=== PATIENT | female | born 1960 | race Caucasian/White ===

== ENCOUNTER 2017-12-30 12:20 | Inpatient (IN) ==
[2017-12-30 14:47] LABS: Baso % (Auto) 0.5 % (0.0-2.0); Eos # (Auto) 0.1 th/mm3 (0.0-0.4); Eos % (Auto) 1.4 % (0.0-4.0); Hematocrit 37.3 % (35.0-46.0); Lymph # (Auto) 0.9 th/mm3 (1.0-4.8); Lymph % (Auto) 16.8 % (9.0-44.0); Mean Corpuscular HGB Conc 34.8 % (32.0-36.0); Mean Corpuscular Hemoglobin 38.7 pg (27.0-34.0); Mean Corpuscular Volume 111.4 fL (80.0-100.0); Mean Platelet Volume 8.4 fL (7.0-11.0); Mono # (Auto) 0.6 th/mm3 (0.0-0.9); Neut % (Auto) 71.3 % (16.0-70.0); Platelet Count 184 th/mm3 (150-450); Red Blood Count 3.35 mil/mm3 (4.00-5.30); Red Cell Distribution Width 16.2 % (11.6-17.2); White Blood Count 5.6 th/mm3 (4.0-11.0)
[2017-12-30 15:54] LABS: Alanine Aminotransferase 25 U/L (10-53); Albumin 4.2 g/dL (3.4-5.0); Alkaline Phosphatase 51 U/L (45-117); Anion Gap 15 meq/L (5-15); Aspartate Aminotransferase 53 U/L (15-37); Blood Urea Nitrogen 32 mg/dL (7-18); Carbon Dioxide 32.8 meq/L (21.0-32.0); Chloride 87 meq/L (98-107); Glomerular Filtration Rate 30 mL/min (>89); Glucose,Random 154 mg/dL (74-106); Lipase 321 U/L (73-393); Sodium 135 meq/L (136-145); Total Protein 8.3 g/dL (6.4-8.2)
[2017-12-30 15:59] LABS: Potassium 2.5 meq/L (3.5-5.1)
[2017-12-30] MEDS ORDERED: Sod Chloride 0.9% Inj 1,000 ML IV.SIG ONE (16:45)
[2017-12-30] MEDS ORDERED: Potassium Chlor 20 mEq Premix 20 MEQ/100 ML PIGGYBACK IV.SIG ONE (16:45)
[2017-12-30] MEDS ORDERED: Sod Chloride 0.9% Inj 1,000 ML IV.SIG SCH (17:15)
--- NOTE | 2017-12-30 17:26 | ED ---
HPI General Chief complaint: Nausea/Vomiting/Diarrhea Stated complaint: Poss Gallbladder Complaint/UTI Time Seen by Provider: 12/30/17 16:44 Source: patient and family Mode of arrival: ambulatory Limitations: no limitations History of Present Illness HPI Narrative: Patient is a 57-year-old female presenting to emerge department for evaluation of nausea, vomiting, lightheadedness and dizziness. Patient states she has been vomiting daily for several months sometimes 2-3 times a day. Today she reports feeling dizzy and lightheaded which prompted her presentation to the emergency department. Patient reports that she has had intermittent epigastric abdominal pain. Patient also reports dysuria, hesitancy , this started a few days ago. She reports a history of type 2 diabetes, hypertension, depression. Patient states she stopped her medications which included metformin, blood pressure pills, Librium several months ago. She felt like she did not need them. Patient reports that she used to have a history of binge drinking, she initially denied any current alcohol use however she confessed that she has been drinking again. MD complaint: nausea, vomiting and abdominal pain Onset (ago): month(s) Associated Abdominal Pain: Yes Location of pain: epigastric Severity: mild Severity scale (1-10): 3 Quality: cramping and aching Relieving factors: none Exacerbating factors: none Context: alcohol abuse Associated symptoms: nausea/vomiting Related Data Home Medications Medication Instructions Recorded Confirmed potassium chloride [Klor-Con 10] 10 meq PO DAILY 12/30/17 12/30/17 Previous Rx's Medication Instructions Recorded calcium carbonate 400 mg PO BID #10 tab 01/03/18 magnesium oxide 400 mg PO DAILY #5 tab 01/03/18 potassium chloride 20 meq PO BID #20 cap 01/03/18 vancomycin 500 mg PO QID 10 Days #40 each 01/03/18 Allergies Allergy/AdvReac Type Severity Reaction Status Date / Time cephalexin Allergy Unknown VOMITS Verified 12/30/17 16:35 Review of Systems ROS: all other systems reviewed are negative [facility] Medical History Medical History Depression (Acute) Diabetes (Acute) HTN (hypertension) (Acute) Surgical History Surgical History No history of previous surgery (Acute) Social History Social History Substance History: No History of Abuse Second Hand Smoke Exposure: Yes Smoking Status: Current every day smoker Tobacco Type: Cigarettes How Often Do You Have a Drink Containing Alcohol: 2 to 3 times a week Recent Travel in [facility] within the Last 8 Weeks: No Recent Out of Country Travel within the Last 8 Weeks: No Immunization History Tetanus Immunization: >5 Years Hx Influenza Vaccine This Season: No Exam Narrative Exam Narrative: GENERAL: Well-developed, well-nourished, alert female. Presenting in no acute distress. SKIN: Focused skin assessment warm/dry. HEAD: Atraumatic. Normocephalic. EYES: Pupils equal and round. No scleral icterus. No injection or drainage. ENT: No nasal bleeding or discharge. Mucous membranes pink and moist. NECK: Trachea midline. No JVD. CARDIOVASCULAR: Tachycardic. No murmur appreciated. RESPIRATORY: No accessory muscle use. Clear to auscultation. Breath sounds equal bilaterally. GASTROINTESTINAL: Abdomen soft, non-tender, nondistended. Hepatic and splenic margins not palpable. MUSCULOSKELETAL: No obvious deformities. No clubbing. No cyanosis. No edema. NEUROLOGICAL: Awake and alert. No obvious cranial nerve deficits. Motor grossly within normal limits. Normal speech. Mildly tremulous PSYCHIATRIC: Appropriate mood and affect; insight and judgment normal. Course Initial Documented Vital Signs Temperature 98.2 F 12/30/17 13:14 Pulse Rate 115 H 12/30/17 13:14 Respiratory Rate 16 12/30/17 13:14 Blood Pressure 104/62 12/30/17 13:14 Pulse Oximetry 98 12/30/17 13:14 Last Documented Vital Signs Temperature 97.5 F L 01/03/18 08:00 Pulse Rate 68 01/03/18 12:00 Respiratory Rate 19 01/03/18 08:00 Blood Pressure 158/103 H 01/03/18 08:00 Pulse Oximetry 98 01/03/18 08:00 Medical Decision Making [facility] [place] Narrative Medical decision making narrative: Patient presented for evaluation of nausea, vomiting, epigastric abdominal pain. Patient is mildly tachycardic on arrival, labs and imaging ordered and pending. IV fluids, Zofran ordered. Labs reviewed , potassium level was 2.5, she was given oral and IV replacement. BUN and creatinine are elevated at 32/1.73, this is new for patient compared to old records. CT scan the abdomen and pelvis shows fatty infiltration of liver with the liver measuring 18 cm, diverticulosis without diverticulitis, no obstruction or inflammatory changes. Patient will be admitted for acute kidney injury, hypokalemia likely secondary to alcohol abuse. Patient is agreeable to stay. Medical Screen Exam Complete: Yes Emergency Medical Condition: Yes Differential Diagnosis Differential Diagnosis: Metabolic abnormality versus withdrawal versus UTI versus gastritis versus other Lab Data Lab results reviewed: Yes I reviewed the patient's lab results. Result diagrams: 01/03/18 05:51 01/03/18 12:00 Lab Results 12/30/17 12/30/17 12/30/17 Range/Units 13:45 13:59 13:59 WBC 5.6 (4.0-11.0) th/mm3 RBC 3.35 L (4.00-5.30) mil/mm3 Hgb 13.0 (11.6-15.3) gm/dL Hct 37.3 (35.0-46.0) % MCV 111.4 H (80.0-100.0) fL MCH 38.7 H (27.0-34.0) pg MCHC 34.8 (32.0-36.0) % RDW 16.2 (11.6-17.2) % Plt Count 184 (150-450) th/mm3 MPV 8.4 (7.0-11.0) fL Neut % (Auto) 71.3 H (16.0-70.0) % Lymph % (Auto) 16.8 (9.0-44.0) % [place] % (Auto) 10.0 H (0.0-8.0) % Eos % (Auto) 1.4 (0.0-4.0) % Baso % (Auto) 0.5 (0.0-2.0) % Neut # (Auto) 4.0 (1.8-7.7) th/mm3 Lymph # (Auto) 0.9 L (1.0-4.8) th/mm3 [place] # (Auto) 0.6 (0.0-0.9) th/mm3 Eos # (Auto) 0.1 (0.0-0.4) th/mm3 Baso # (Auto) 0.0 (0.0-0.2) th/mm3 WBC Differential . Differential Comment Auto diff final PT (9.8-11.6) sec INR Ratio APTT (24.3-30.1) sec Sodium 135 L (136-145) meq/L Potassium 2.5 L* (3.5-5.1) meq/L Chloride 87 L (98-107) meq/L Carbon Dioxide 32.8 H (21.0-32.0) meq/L Anion Gap 15 (5-15) meq/L BUN 32 H (7-18) mg/dL Creatinine 1.73 H (0.50-1.00) mg/dL Estimated GFR 30 L (>89) mL/min POC Glucose (68-110) mg/dl Random Glucose 154 H (74-106) mg/dL Hemoglobin A1c (4.3-6.0) % Calcium 8.0 L (8.5-10.1) mg/dL Prot Corrected Calcium (8.5-10.1) mg/dL Total Bilirubin 1.9 H (0.2-1.0) mg/dL AST 53 H (15-37) U/L ALT 25 (10-53) U/L Alkaline Phosphatase 51 (45-117) U/L Total Creatine Kinase (26-192) U/L CK-MB (CK-2) (0.5-3.6) ng/mL CK-MB (CK-2) % (0.0-4.0) % Troponin I (0.02-0.05) ng/mL Total Protein 8.3 H (6.4-8.2) g/dL Albumin 4.2 (3.4-5.0) g/dL Lipase 321 (73-393) U/L Urine Color [place] (Yellw/Straw) Urine Clarity Cloudy H (Clear) Urine pH 5.0 (5.0-8.5) Ur Specific [place] 1.030 (1.002-1.035) Urine Protein 100 H (Neg-Trace) mg/dL Urine Glucose (UA) 50 (Negative) mg/dL Urine Ketones Trace H (Negative) mg/dL Urine Occult Blood Negative (Negative) Urine Nitrate Positive H (Negative) Urine Bilirubin Moderate H (Negative) Urine Ictotest (Negative) Urine Urobilinogen 4 or greater (Less than 2) mg/dL Ur Leukocyte Esterase Trace H (Negative) Urine RBC 1 (0-3) /hpf Urine WBC 6 H (0-5) /hpf Ur Squamous Epith Cells 22 (0-5) /hpf Urine Bacteria Moderate H (None) /hpf Hyaline Casts 33 (0-3) /lpf Urine Mucus Many H (Occasional) /lpf Micro UA Comment Culture indicated Ur Microscopic Review Not Reportable Urine Culture Comments Culture indicated Stl C.difficile Tox PCR (Negative) St C. diff Tox Epid 027 (Negative) 12/30/17 12/30/17 12/30/17 Range/Units 13:59 16:40 16:40 WBC (4.0-11.0) th/mm3 RBC (4.00-5.30) mil/mm3 Hgb (11.6-15.3) gm/dL Hct (35.0-46.0) % MCV (80.0-100.0) fL MCH (27.0-34.0) pg MCHC (32.0-36.0) % RDW (11.6-17.2) % Plt Count (150-450) th/mm3 MPV (7.0-11.0) fL Neut % (Auto) (16.0-70.0) % Lymph % (Auto) (9.0-44.0) % [place] % (Auto) (0.0-8.0) % Eos % (Auto) (0.0-4.0) % Baso % (Auto) (0.0-2.0) % Neut # (Auto) (1.8-7.7) th/mm3 Lymph # (Auto) (1.0-4.8) th/mm3 [place] # (Auto) (0.0-0.9) th/mm3 Eos # (Auto) (0.0-0.4) th/mm3 Baso # (Auto) (0.0-0.2) th/mm3 WBC Differential Differential Comment PT 11.6 (9.8-11.6) sec INR 1.1 Ratio APTT 23.4 L (24.3-30.1) sec Sodium (136-145) meq/L Potassium (3.5-5.1) meq/L Chloride (98-107) meq/L Carbon Dioxide (21.0-32.0) meq/L Anion Gap (5-15) meq/L BUN (7-18) mg/dL Creatinine (0.50-1.00) mg/dL Estimated GFR (>89) mL/min POC Glucose (68-110) mg/dl Random Glucose (74-106) mg/dL Hemoglobin A1c 7.5 H (4.3-6.0) % Calcium (8.5-10.1) mg/dL Prot Corrected Calcium (8.5-10.1) mg/dL Total Bilirubin (0.2-1.0) mg/dL AST (15-37) U/L ALT (10-53) U/L Alkaline Phosphatase (45-117) U/L Total Creatine Kinase 417 H (26-192) U/L CK-MB (CK-2) Less than 1.0 (0.5-3.6) ng/mL CK-MB (CK-2) % 0.2 (0.0-4.0) % Troponin I Less than 0.02 L (0.02-0.05) ng/mL Total Protein (6.4-8.2) g/dL Albumin (3.4-5.0) g/dL Lipase (73-393) U/L Urine Color (Yellw/Straw) Urine Clarity (Clear) Urine pH (5.0-8.5) Ur Specific [place] (1.002-1.035) Urine Protein (Neg-Trace) mg/dL Urine Glucose (UA) (Negative) mg/dL Urine Ketones (Negative) mg/dL Urine Occult Blood (Negative) Urine Nitrate (Negative) Urine Bilirubin (Negative) Urine Ictotest (Negative) Urine Urobilinogen (Less than 2) mg/dL Ur Leukocyte Esterase (Negative) Urine RBC (0-3) /hpf Urine WBC (0-5) /hpf Ur Squamous Epith Cells (0-5) /hpf Urine Bacteria (None) /hpf Hyaline Casts (0-3) /lpf Urine Mucus (Occasional) /lpf Micro UA Comment Ur Microscopic Review Urine Culture Comments Stl C.difficile Tox PCR (Negative) St C. diff Tox Epid 027 (Negative) 12/30/17 12/31/17 12/31/17 Range/Units 23:40 03:15 06:58 WBC 3.0 L (4.0-11.0) th/mm3 RBC 2.56 L (4.00-5.30) mil/mm3 Hgb 10.0 L D (11.6-15.3) gm/dL Hct 28.9 L (35.0-46.0) % MCV 113.1 H (80.0-100.0) fL MCH 39.2 H (27.0-34.0) pg MCHC 34.6 (32.0-36.0) % RDW 16.3 (11.6-17.2) % Plt Count 115 L D (150-450) th/mm3 MPV 8.1 (7.0-11.0) fL Neut % (Auto) 61.0 (16.0-70.0) % Lymph % (Auto) 24.4 (9.0-44.0) % [place] % (Auto) 11.8 H (0.0-8.0) % Eos % (Auto) 2.3 (0.0-4.0) % Baso % (Auto) 0.5 (0.0-2.0) % Neut # (Auto) 1.8 (1.8-7.7) th/mm3 Lymph # (Auto) 0.7 L (1.0-4.8) th/mm3 [place] # (Auto) 0.4 (0.0-0.9) th/mm3 Eos # (Auto) 0.1 (0.0-0.4) th/mm3 Baso # (Auto) 0.0 (0.0-0.2) th/mm3 WBC Differential . Differential Comment Auto diff final PT (9.8-11.6) sec INR Ratio APTT (24.3-30.1) sec Sodium (136-145) meq/L Potassium (3.5-5.1) meq/L Chloride (98-107) meq/L Carbon Dioxide (21.0-32.0) meq/L Anion Gap (5-15) meq/L BUN (7-18) mg/dL Creatinine (0.50-1.00) mg/dL Estimated GFR (>89) mL/min POC Glucose 171 H (68-110) mg/dl Random Glucose (74-106) mg/dL Hemoglobin A1c (4.3-6.0) % Calcium (8.5-10.1) mg/dL Prot Corrected Calcium (8.5-10.1) mg/dL Total Bilirubin (0.2-1.0) mg/dL AST (15-37) U/L ALT (10-53) U/L Alkaline Phosphatase (45-117) U/L Total Creatine Kinase (26-192) U/L CK-MB (CK-2) (0.5-3.6) ng/mL CK-MB (CK-2) % (0.0-4.0) % Troponin I (0.02-0.05) ng/mL Total Protein (6.4-8.2) g/dL Albumin (3.4-5.0) g/dL Lipase (73-393) U/L Urine Color (Yellw/Straw) Urine Clarity (Clear) Urine pH (5.0-8.5) Ur Specific [place] (1.002-1.035) Urine Protein (Neg-Trace) mg/dL Urine Glucose (UA) (Negative) mg/dL Urine Ketones (Negative) mg/dL Urine Occult Blood (Negative) Urine Nitrate (Negative) Urine Bilirubin (Negative) Urine Ictotest (Negative) Urine Urobilinogen (Less than 2) mg/dL Ur Leukocyte Esterase (Negative) Urine RBC (0-3) /hpf Urine WBC (0-5) /hpf Ur Squamous Epith Cells (0-5) /hpf Urine Bacteria (None) /hpf Hyaline Casts (0-3) /lpf Urine Mucus (Occasional) /lpf Micro UA Comment Ur Microscopic Review Urine Culture Comments Stl C.difficile Tox PCR Positive H (Negative) St C. diff Tox Epid 027 Negative (Negative) 12/31/17 12/31/17 12/31/17 Range/Units 06:58 12:33 16:53 WBC (4.0-11.0) th/mm3 RBC (4.00-5.30) mil/mm3 Hgb (11.6-15.3) gm/dL Hct (35.0-46.0) % MCV (80.0-100.0) fL MCH (27.0-34.0) pg MCHC (32.0-36.0) % RDW (11.6-17.2) % Plt Count (150-450) th/mm3 MPV (7.0-11.0) fL Neut % (Auto) (16.0-70.0) % Lymph % (Auto) (9.0-44.0) % [place] % (Auto) (0.0-8.0) % Eos % (Auto) (0.0-4.0) % Baso % (Auto) (0.0-2.0) % Neut # (Auto) (1.8-7.7) th/mm3 Lymph # (Auto) (1.0-4.8) th/mm3 [place] # (Auto) (0.0-0.9) th/mm3 Eos # (Auto) (0.0-0.4) th/mm3 Baso # (Auto) (0.0-0.2) th/mm3 WBC Differential Differential Comment PT (9.8-11.6) sec INR Ratio APTT (24.3-30.1) sec Sodium 137 (136-145) meq/L Potassium 2.2 L* (3.5-5.1) meq/L Chloride 97 L D (98-107) meq/L Carbon Dioxide 26.9 (21.0-32.0) meq/L Anion Gap 13 (5-15) meq/L BUN 30 H (7-18) mg/dL Creatinine 1.27 H (0.50-1.00) mg/dL Estimated GFR 44 L (>89) mL/min POC Glucose 147 H 165 H (68-110) mg/dl Random Glucose 131 H (74-106) mg/dL Hemoglobin A1c (4.3-6.0) % Calcium 6.6 L* D (8.5-10.1) mg/dL Prot Corrected Calcium 7.1 L* (8.5-10.1) mg/dL Total Bilirubin 1.0 (0.2-1.0) mg/dL AST 43 H (15-37) U/L ALT 16 (10-53) U/L Alkaline Phosphatase 40 L (45-117) U/L Total Creatine Kinase (26-192) U/L CK-MB (CK-2) (0.5-3.6) ng/mL CK-MB (CK-2) % (0.0-4.0) % Troponin I (0.02-0.05) ng/mL Total Protein 6.0 L D (6.4-8.2) g/dL Albumin 3.2 L D (3.4-5.0) g/dL Lipase (73-393) U/L Urine Color (Yellw/Straw) Urine Clarity (Clear) Urine pH (5.0-8.5) Ur Specific [place] (1.002-1.035) Urine Protein (Neg-Trace) mg/dL Urine Glucose (UA) (Negative) mg/dL Urine Ketones (Negative) mg/dL Urine Occult Blood (Negative) Urine Nitrate (Negative) Urine Bilirubin (Negative) Urine Ictotest (Negative) Urine Urobilinogen (Less than 2) mg/dL Ur Leukocyte Esterase (Negative) Urine RBC (0-3) /hpf Urine WBC (0-5) /hpf Ur Squamous Epith Cells (0-5) /hpf Urine Bacteria (None) /hpf Hyaline Casts (0-3) /lpf Urine Mucus (Occasional) /lpf Micro UA Comment Ur Microscopic Review Urine Culture Comments Stl C.difficile Tox PCR (Negative) St C. diff Tox Epid 027 (Negative) 12/31/17 01/01/18 01/01/18 Range/Units 20:10 04:31 07:44 WBC 3.2 L (4.0-11.0) th/mm3 RBC 2.73 L (4.00-5.30) mil/mm3 Hgb 10.6 L (11.6-15.3) gm/dL Hct 31.0 L (35.0-46.0) % MCV 113.3 H (80.0-100.0) fL MCH 38.7 H (27.0-34.0) pg MCHC 34.1 (32.0-36.0) % RDW 16.8 (11.6-17.2) % Plt Count 148 L (150-450) th/mm3 MPV 8.2 (7.0-11.0) fL Neut % (Auto) 59.1 (16.0-70.0) % Lymph % (Auto) 25.7 (9.0-44.0) % [place] % (Auto) 12.0 H (0.0-8.0) % Eos % (Auto) 2.4 (0.0-4.0) % Baso % (Auto) 0.8 (0.0-2.0) % Neut # (Auto) 1.9 (1.8-7.7) th/mm3 Lymph # (Auto) 0.8 L (1.0-4.8) th/mm3 [place] # (Auto) 0.4 (0.0-0.9) th/mm3 Eos # (Auto) 0.1 (0.0-0.4) th/mm3 Baso # (Auto) 0.0 (0.0-0.2) th/mm3 WBC Differential . Differential Comment Auto diff final PT (9.8-11.6) sec INR Ratio APTT (24.3-30.1) sec Sodium (136-145) meq/L Potassium (3.5-5.1) meq/L Chloride (98-107) meq/L Carbon Dioxide (21.0-32.0) meq/L Anion Gap (5-15) meq/L BUN (7-18) mg/dL Creatinine (0.50-1.00) mg/dL Estimated GFR (>89) mL/min POC Glucose 137 H 116 H (68-110) mg/dl Random Glucose (74-106) mg/dL Hemoglobin A1c (4.3-6.0) % Calcium (8.5-10.1) mg/dL Prot Corrected Calcium (8.5-10.1) mg/dL Total Bilirubin (0.2-1.0) mg/dL AST (15-37) U/L ALT (10-53) U/L Alkaline Phosphatase (45-117) U/L Total Creatine Kinase (26-192) U/L CK-MB (CK-2) (0.5-3.6) ng/mL CK-MB (CK-2) % (0.0-4.0) % Troponin I (0.02-0.05) ng/mL Total Protein (6.4-8.2) g/dL Albumin (3.4-5.0) g/dL Lipase (73-393) U/L Urine Color (Yellw/Straw) Urine Clarity (Clear) Urine pH (5.0-8.5) Ur Specific [place] (1.002-1.035) Urine Protein (Neg-Trace) mg/dL Urine Glucose (UA) (Negative) mg/dL Urine Ketones (Negative) mg/dL Urine Occult Blood (Negative) Urine Nitrate (Negative) Urine Bilirubin (Negative) Urine Ictotest (Negative) Urine Urobilinogen (Less than 2) mg/dL Ur Leukocyte Esterase (Negative) Urine RBC (0-3) /hpf Urine WBC (0-5) /hpf Ur Squamous Epith Cells (0-5) /hpf Urine Bacteria (None) /hpf Hyaline Casts (0-3) /lpf Urine Mucus (Occasional) /lpf Micro UA Comment Ur Microscopic Review Urine Culture Comments Stl C.difficile Tox PCR (Negative) St C. diff Tox Epid 027 (Negative) 01/01/18 01/01/18 01/02/18 Range/Units 07:44 13:17 08:44 WBC 3.4 L (4.0-11.0) th/mm3 RBC 2.45 L (4.00-5.30) mil/mm3 Hgb 9.6 L (11.6-15.3) gm/dL Hct 27.6 L (35.0-46.0) % MCV 112.8 H (80.0-100.0) fL MCH 39.0 H (27.0-34.0) pg MCHC 34.6 (32.0-36.0) % RDW 16.3 (11.6-17.2) % Plt Count 176 (150-450) th/mm3 MPV 8.2 (7.0-11.0) fL Neut % (Auto) 67.4 (16.0-70.0) % Lymph % (Auto) 19.6 (9.0-44.0) % [place] % (Auto) 9.7 H (0.0-8.0) % Eos % (Auto) 2.5 (0.0-4.0) % Baso % (Auto) 0.8 (0.0-2.0) % Neut # (Auto) 2.3 (1.8-7.7) th/mm3 Lymph # (Auto) 0.7 L (1.0-4.8) th/mm3 [place] # (Auto) 0.3 (0.0-0.9) th/mm3 Eos # (Auto) 0.1 (0.0-0.4) th/mm3 Baso # (Auto) 0.0 (0.0-0.2) th/mm3 WBC Differential . Differential Comment Auto diff final PT (9.8-11.6) sec INR Ratio APTT (24.3-30.1) sec Sodium 139 (136-145) meq/L Potassium 2.6 L* 3.0 L (3.5-5.1) meq/L Chloride 102 (98-107) meq/L Carbon Dioxide 24.9 (21.0-32.0) meq/L Anion Gap 12 (5-15) meq/L BUN 17 (7-18) mg/dL Creatinine 1.00 (0.50-1.00) mg/dL Estimated GFR 57 L (>89) mL/min POC Glucose (68-110) mg/dl Random Glucose 106 (74-106) mg/dL Hemoglobin A1c (4.3-6.0) % Calcium 6.7 L* (8.5-10.1) mg/dL Prot Corrected Calcium 7.1 L* (8.5-10.1) mg/dL Total Bilirubin 0.5 (0.2-1.0) mg/dL AST 47 H (15-37) U/L ALT 24 (10-53) U/L Alkaline Phosphatase 48 (45-117) U/L Total Creatine Kinase (26-192) U/L CK-MB (CK-2) (0.5-3.6) ng/mL CK-MB (CK-2) % (0.0-4.0) % Troponin I (0.02-0.05) ng/mL Total Protein 6.4 (6.4-8.2) g/dL Albumin 3.3 L (3.4-5.0) g/dL Lipase (73-393) U/L Urine Color (Yellw/Straw) Urine Clarity (Clear) Urine pH (5.0-8.5) Ur Specific [place] (1.002-1.035) Urine Protein (Neg-Trace) mg/dL Urine Glucose (UA) (Negative) mg/dL Urine Ketones (Negative) mg/dL Urine Occult Blood (Negative) Urine Nitrate (Negative) Urine Bilirubin (Negative) Urine Ictotest (Negative) Urine Urobilinogen (Less than 2) mg/dL Ur Leukocyte Esterase (Negative) Urine RBC (0-3) /hpf Urine WBC (0-5) /hpf Ur Squamous Epith Cells (0-5) /hpf Urine Bacteria (None) /hpf Hyaline Casts (0-3) /lpf Urine Mucus (Occasional) /lpf Micro UA Comment Ur Microscopic Review Urine Culture Comments Stl C.difficile Tox PCR (Negative) St C. diff Tox Epid 027 (Negative) 01/02/18 01/02/18 01/02/18 Range/Units 08:44 09:18 12:15 WBC (4.0-11.0) th/mm3 RBC (4.00-5.30) mil/mm3 Hgb (11.6-15.3) gm/dL Hct (35.0-46.0) % MCV (80.0-100.0) fL MCH (27.0-34.0) pg MCHC (32.0-36.0) % RDW (11.6-17.2) % Plt Count (150-450) th/mm3 MPV (7.0-11.0) fL Neut % (Auto) (16.0-70.0) % Lymph % (Auto) (9.0-44.0) % [place] % (Auto) (0.0-8.0) % Eos % (Auto) (0.0-4.0) % Baso % (Auto) (0.0-2.0) % Neut # (Auto) (1.8-7.7) th/mm3 Lymph # (Auto) (1.0-4.8) th/mm3 [place] # (Auto) (0.0-0.9) th/mm3 Eos # (Auto) (0.0-0.4) th/mm3 Baso # (Auto) (0.0-0.2) th/mm3 WBC Differential Differential Comment PT (9.8-11.6) sec INR Ratio APTT (24.3-30.1) sec Sodium 139 (136-145) meq/L Potassium 2.8 L* (3.5-5.1) meq/L Chloride 102 (98-107) meq/L Carbon Dioxide 23.5 (21.0-32.0) meq/L Anion Gap 14 (5-15) meq/L BUN 10 (7-18) mg/dL Creatinine 0.84 (0.50-1.00) mg/dL Estimated GFR 70 L (>89) mL/min POC Glucose 120 H 114 H (68-110) mg/dl Random Glucose 115 H (74-106) mg/dL Hemoglobin A1c (4.3-6.0) % Calcium 6.4 L* (8.5-10.1) mg/dL Prot Corrected Calcium 6.9 L* (8.5-10.1) mg/dL Total Bilirubin 0.5 (0.2-1.0) mg/dL AST 52 H (15-37) U/L ALT 28 (10-53) U/L Alkaline Phosphatase 48 (45-117) U/L Total Creatine Kinase (26-192) U/L CK-MB (CK-2) (0.5-3.6) ng/mL CK-MB (CK-2) % (0.0-4.0) % Troponin I (0.02-0.05) ng/mL Total Protein 6.0 L (6.4-8.2) g/dL Albumin 3.2 L (3.4-5.0) g/dL Lipase (73-393) U/L Urine Color (Yellw/Straw) Urine Clarity (Clear) Urine pH (5.0-8.5) Ur Specific [place] (1.002-1.035) Urine Protein (Neg-Trace) mg/dL Urine Glucose (UA) (Negative) mg/dL Urine Ketones (Negative) mg/dL Urine Occult Blood (Negative) Urine Nitrate (Negative) Urine Bilirubin (Negative) Urine Ictotest (Negative) Urine Urobilinogen (Less than 2) mg/dL Ur Leukocyte Esterase (Negative) Urine RBC (0-3) /hpf Urine WBC (0-5) /hpf Ur Squamous Epith Cells (0-5) /hpf Urine Bacteria (None) /hpf Hyaline Casts (0-3) /lpf Urine Mucus (Occasional) /lpf Micro UA Comment Ur Microscopic Review Urine Culture Comments Stl C.difficile Tox PCR (Negative) St C. diff Tox Epid 027 (Negative) 01/02/18 01/02/18 01/02/18 Range/Units 16:59 17:06 20:12 WBC (4.0-11.0) th/mm3 RBC (4.00-5.30) mil/mm3 Hgb (11.6-15.3) gm/dL Hct (35.0-46.0) % MCV (80.0-100.0) fL MCH (27.0-34.0) pg MCHC (32.0-36.0) % RDW (11.6-17.2) % Plt Count (150-450) th/mm3 MPV (7.0-11.0) fL Neut % (Auto) (16.0-70.0) % Lymph % (Auto) (9.0-44.0) % [place] % (Auto) (0.0-8.0) % Eos % (Auto) (0.0-4.0) % Baso % (Auto) (0.0-2.0) % Neut # (Auto) (1.8-7.7) th/mm3 Lymph # (Auto) (1.0-4.8) th/mm3 [place] # (Auto) (0.0-0.9) th/mm3 Eos # (Auto) (0.0-0.4) th/mm3 Baso # (Auto) (0.0-0.2) th/mm3 WBC Differential Differential Comment PT (9.8-11.6) sec INR Ratio APTT (24.3-30.1) sec Sodium (136-145) meq/L Potassium 3.1 L (3.5-5.1) meq/L Chloride (98-107) meq/L Carbon Dioxide (21.0-32.0) meq/L Anion Gap (5-15) meq/L BUN (7-18) mg/dL Creatinine (0.50-1.00) mg/dL Estimated GFR (>89) mL/min POC Glucose 135 H 171 H (68-110) mg/dl Random Glucose (74-106) mg/dL Hemoglobin A1c (4.3-6.0) % Calcium (8.5-10.1) mg/dL Prot Corrected Calcium (8.5-10.1) mg/dL Total Bilirubin (0.2-1.0) mg/dL AST (15-37) U/L ALT (10-53) U/L Alkaline Phosphatase (45-117) U/L Total Creatine Kinase (26-192) U/L CK-MB (CK-2) (0.5-3.6) ng/mL CK-MB (CK-2) % (0.0-4.0) % Troponin I (0.02-0.05) ng/mL Total Protein (6.4-8.2) g/dL Albumin (3.4-5.0) g/dL Lipase (73-393) U/L Urine Color (Yellw/Straw) Urine Clarity (Clear) Urine pH (5.0-8.5) Ur Specific [place] (1.002-1.035) Urine Protein (Neg-Trace) mg/dL Urine Glucose (UA) (Negative) mg/dL Urine Ketones (Negative) mg/dL Urine Occult Blood (Negative) Urine Nitrate (Negative) Urine Bilirubin (Negative) Urine Ictotest (Negative) Urine Urobilinogen (Less than 2) mg/dL Ur Leukocyte Esterase (Negative) Urine RBC (0-3) /hpf Urine WBC (0-5) /hpf Ur Squamous Epith Cells (0-5) /hpf Urine Bacteria (None) /hpf Hyaline Casts (0-3) /lpf Urine Mucus (Occasional) /lpf Micro UA Comment Ur Microscopic Review Urine Culture Comments Stl C.difficile Tox PCR (Negative) St C. diff Tox Epid 027 (Negative) 01/03/18 01/03/18 01/03/18 Range/Units 04:20 05:51 05:51 WBC 3.4 L (4.0-11.0) th/mm3 RBC 2.65 L (4.00-5.30) mil/mm3 Hgb 10.2 L (11.6-15.3) gm/dL Hct 29.5 L (35.0-46.0) % MCV 111.6 H (80.0-100.0) fL MCH 38.4 H (27.0-34.0) pg MCHC 34.4 (32.0-36.0) % RDW 16.7 (11.6-17.2) % Plt Count 212 (150-450) th/mm3 MPV 8.4 (7.0-11.0) fL Neut % (Auto) 62.9 (16.0-70.0) % Lymph % (Auto) 21.9 (9.0-44.0) % [place] % (Auto) 12.0 H (0.0-8.0) % Eos % (Auto) 2.3 (0.0-4.0) % Baso % (Auto) 0.9 (0.0-2.0) % Neut # (Auto) 2.1 (1.8-7.7) th/mm3 Lymph # (Auto) 0.7 L (1.0-4.8) th/mm3 [place] # (Auto) 0.4 (0.0-0.9) th/mm3 Eos # (Auto) 0.1 (0.0-0.4) th/mm3 Baso # (Auto) 0.0 (0.0-0.2) th/mm3 WBC Differential . Differential Comment Auto diff final PT (9.8-11.6) sec INR Ratio APTT (24.3-30.1) sec Sodium 141 (136-145) meq/L Potassium 3.2 L (3.5-5.1) meq/L Chloride 105 (98-107) meq/L Carbon Dioxide 24.6 (21.0-32.0) meq/L Anion Gap 11 (5-15) meq/L BUN 10 (7-18) mg/dL Creatinine 0.97 (0.50-1.00) mg/dL Estimated GFR 59 L (>89) mL/min POC Glucose 155 H (68-110) mg/dl Random Glucose 120 H (74-106) mg/dL Hemoglobin A1c (4.3-6.0) % Calcium 6.7 L* (8.5-10.1) mg/dL Prot Corrected Calcium 7.2 L* (8.5-10.1) mg/dL Total Bilirubin 0.5 (0.2-1.0) mg/dL AST 30 (15-37) U/L ALT 23 (10-53) U/L Alkaline Phosphatase 46 (45-117) U/L Total Creatine Kinase (26-192) U/L CK-MB (CK-2) (0.5-3.6) ng/mL CK-MB (CK-2) % (0.0-4.0) % Troponin I (0.02-0.05) ng/mL Total Protein 6.1 L (6.4-8.2) g/dL Albumin 3.0 L (3.4-5.0) g/dL Lipase (73-393) U/L Urine Color (Yellw/Straw) Urine Clarity (Clear) Urine pH (5.0-8.5) Ur Specific [place] (1.002-1.035) Urine Protein (Neg-Trace) mg/dL Urine Glucose (UA) (Negative) mg/dL Urine Ketones (Negative) mg/dL Urine Occult Blood (Negative) Urine Nitrate (Negative) Urine Bilirubin (Negative) Urine Ictotest (Negative) Urine Urobilinogen (Less than 2) mg/dL Ur Leukocyte Esterase (Negative) Urine RBC (0-3) /hpf Urine WBC (0-5) /hpf Ur Squamous Epith Cells (0-5) /hpf Urine Bacteria (None) /hpf Hyaline Casts (0-3) /lpf Urine Mucus (Occasional) /lpf Micro UA Comment Ur Microscopic Review Urine Culture Comments Stl C.difficile Tox PCR (Negative) St C. diff Tox Epid 027 (Negative) 01/03/18 01/03/18 Range/Units 07:44 12:00 WBC (4.0-11.0) th/mm3 RBC (4.00-5.30) mil/mm3 Hgb (11.6-15.3) gm/dL Hct (35.0-46.0) % MCV (80.0-100.0) fL MCH (27.0-34.0) pg MCHC (32.0-36.0) % RDW (11.6-17.2) % Plt Count (150-450) th/mm3 MPV (7.0-11.0) fL Neut % (Auto) (16.0-70.0) % Lymph % (Auto) (9.0-44.0) % [place] % (Auto) (0.0-8.0) % Eos % (Auto) (0.0-4.0) % Baso % (Auto) (0.0-2.0) % Neut # (Auto) (1.8-7.7) th/mm3 Lymph # (Auto) (1.0-4.8) th/mm3 [place] # (Auto) (0.0-0.9) th/mm3 Eos # (Auto) (0.0-0.4) th/mm3 Baso # (Auto) (0.0-0.2) th/mm3 WBC Differential Differential Comment PT (9.8-11.6) sec INR Ratio APTT (24.3-30.1) sec Sodium (136-145) meq/L Potassium 3.1 L (3.5-5.1) meq/L Chloride (98-107) meq/L Carbon Dioxide (21.0-32.0) meq/L Anion Gap (5-15) meq/L BUN (7-18) mg/dL Creatinine (0.50-1.00) mg/dL Estimated GFR (>89) mL/min POC Glucose 131 H (68-110) mg/dl Random Glucose (74-106) mg/dL Hemoglobin A1c (4.3-6.0) % Calcium (8.5-10.1) mg/dL Prot Corrected Calcium (8.5-10.1) mg/dL Total Bilirubin (0.2-1.0) mg/dL AST (15-37) U/L ALT (10-53) U/L Alkaline Phosphatase (45-117) U/L Total Creatine Kinase (26-192) U/L CK-MB (CK-2) (0.5-3.6) ng/mL CK-MB (CK-2) % (0.0-4.0) % Troponin I (0.02-0.05) ng/mL Total Protein (6.4-8.2) g/dL Albumin (3.4-5.0) g/dL Lipase (73-393) U/L Urine Color (Yellw/Straw) Urine Clarity (Clear) Urine pH (5.0-8.5) Ur Specific [place] (1.002-1.035) Urine Protein (Neg-Trace) mg/dL Urine Glucose (UA) (Negative) mg/dL Urine Ketones (Negative) mg/dL Urine Occult Blood (Negative) Urine Nitrate (Negative) Urine Bilirubin (Negative) Urine Ictotest (Negative) Urine Urobilinogen (Less than 2) mg/dL Ur Leukocyte Esterase (Negative) Urine RBC (0-3) /hpf Urine WBC (0-5) /hpf Ur Squamous Epith Cells (0-5) /hpf Urine Bacteria (None) /hpf Hyaline Casts (0-3) /lpf Urine Mucus (Occasional) /lpf Micro UA Comment Ur Microscopic Review Urine Culture Comments Stl C.difficile Tox PCR (Negative) St C. diff Tox Epid 027 (Negative) Imaging Data Radiologist's impression: Abdomen/Bladder Ultrasound 12/30/17 00:00 CONCLUSION: 1. Increased echotexture of both kidneys typical of chronic parenchymal disease , nonspecific but as can be related to hypertension or diabetes. 2. No obstructive uropathy or other acute abnormality demonstrated. Abdomen/Pelvis CT 12/30/17 16:45 CONCLUSION: 1. No obstruction or acute inflammatory changes. 2. Mild diverticulosis. No diverticulitis. 3. Severe fatty infiltration of the liver. Similar findings were seen previously. Discharge Plan Discharge Disposition Patient Disposition: 30 Still Patient Discharge Condition Condition: Stable Discharge Order Discharge Orders: Discharge Order (Routine); Ordered 01/03/18 Ordered By: Gokul Valentino Discharge Details Anticipated Discharge Date: 01/03/18 Diagnosis: Acute hypokalemia, JAYME (acute kidney injury), ETOH abuse Physicians Team ED Provider: Gokul Mcelroy ED Midlevel Provider: Katey Zamorano Primary Care Provider: Primary Care Katie Duarte Attending Provider: Gokul Valentino Status ED Status: Left Department Discharge Information Discharge Date/Time: 12/31/17 01:14
[2017-12-30 17:47] LABS: Activated Partial Thrombo Time 23.4 sec (24.3-30.1); INR 1.1 Ratio; Prothrombin Time 11.6 sec (9.8-11.6)
[2017-12-30 17:49] LABS: Creatine Kinase 417 U/L (26-192)
[2017-12-30 18:02] LABS: CKMB Percent 0.2 % (0.0-4.0)
--- NOTE | 2017-12-30 18:17 | CT ---
EXAM DATE: 12/30/2017 6:04 PM EDT AGE/SEX: 57 years / Female INDICATIONS: Nausea vomiting diarrhea upper and lower abdomen pain CLINICAL DATA: This is the patient's initial encounter. Patient reports that signs and symptoms have been present for 1 day and indicates a pain score of 5/10. MEDICAL/SURGICAL HISTORY: Diabetes. Hypertension. None. RADIATION DOSE: 5.54 CTDI (mGy) COMPARISON: [facility] [place] ABDOMEN & PELVIS W CONTRAST, 05/18/2013. . TECHNIQUE: Multiple contiguous axial images were obtained through the abdomen. Images were obtained using multiple row detector helical technique. Using automated exposure control and adjustment of the mA and/or kV according to patient size, radiation dose was kept as low as reasonably achievable to o btain optimal diagnostic quality images. DICOM format image data is available electronically for rev iew and comparison. FINDINGS: There is severe fatty infiltration of the liver. The liver measures 18 cm craniocaudal. No focal hepa tic lesion demonstrated. CT appearance of the gallbladder within normal limits. Noncontrast appearance of the spleen, pancreas, adrenal glands and kidneys within normal limits. No obstruction or acute inflammatory changes are seen of the gastrointestinal tract. There are a few scattered diverticula of the sigmoid colon. The appendix is within normal limits. There is no free fl uid. Visualized lung bases are clear. No acute bony abnormality demonstrated. CONCLUSION: 1. No obstruction or acute inflammatory changes. 2. Mild diverticulosis. No diverticulitis. 3. Severe fatty infiltration of the liver. Similar findings were seen previously. Electronically signed by: Markus Kam MD 12/30/2017 6:15 PM EDT
[2017-12-30] MEDS ORDERED: Bisacodyl 10 MG Supp RECTAL PRN (18:41)
[2017-12-30] MEDS ORDERED: Acetaminophen 325 MG Tablet PO PRN (18:41)
--- NOTE | 2017-12-30 19:24 | US ---
EXAM DATE: 12/30/2017 7:20 PM EDT AGE/SEX: 57 years / Female INDICATIONS: Increased BUN/Creatnine. CLINICAL DATA: This is the patient's initial encounter. Patient reports that signs and symptoms have been present for 1 week and indicates a pain score of 3/10. MEDICAL/SURGICAL HISTORY: Hypertension. Diabetes. Depression. None. COMPARISON: No prior exams available for comparison. MEASUREMENTS: Right Kidney:__9.3 x 4.7 x 4.4 cm Left Kidney:__10.1 x 3.4 x 5.0 cm FINDINGS: Right Kidney: Cortical thickness within normal limits. Increased echotexture. No mass or hydronephros is. Left Kidney: Cortical thickness within normal limits. Increased echotexture. No mass or hydronephrosi s. Bladder: Decompressed. Not well evaluated. Other: None. CONCLUSION: 1. Increased echotexture of both kidneys typical of chronic parenchymal disease, nonspecific but as can be related to hypertension or diabetes. 2. No obstructive uropathy or other acute abnormality demonstrated. Electronically signed by: Markus Kam MD 12/30/2017 7:22 PM EDT
[2017-12-30] MEDS: Sod Chloride 0.9% Inj 1,000 ML IV.CONT SCH (19:56)
[2017-12-30 19:58] LABS: Bacteria,Urine Moderate /hpf; Clarity,Urine Cloudy (Clear); Color,Urine Amber (Yellw/Straw); Glucose,Urine (UA) 50 mg/dL (Negative); Hyaline Casts,Urine 33 /lpf (0-3); Leukocyte Esterase,Urine Trace (Negative); Mucus,Urine Many /lpf (Occasional); Nitrite,Urine Positive (Negative); Squamous Epithelial Cell,Urine 22 /hpf (0-5); Urobilinogen,Urine 4 or Greater mg/dL (Less than 2)
[2017-12-30 20:02] LABS: Bilirubin,Urine Moderate (Negative)
[2017-12-30] MEDS ORDERED: Dextrose 50% in Water 50 ML Vial IV.PUSH PRN (20:55)
[2017-12-30] MEDS ORDERED: Insulin NovoLOG Aspart Correctional Sugar Inj SQ SCH (21:00)
[2017-12-30] MEDS ORDERED: LORazepam 1 MG Tablet PO PRN (21:05)
[2017-12-30] MEDS ORDERED: Haloperidol Inj 5 MG/ML Ampul IV.PUSH PRN (21:05)
--- NOTE | 2017-12-30 21:11 | P.HP ---
History of Present Illness Service: [facility] Primary Care Physician: No Primary Care Physician History of Present Illness: 57-year-old female with past medical history significant for hypertension, hyperlipidemia, diabetes mellitus and depression presents to the emergency department for the evaluation of nausea/vomiting/diarrhea, dizziness and oliguria. The patient reports that starting today she had multiple episodes of urination but felt as though she was unable to completely empty her bladder. She reports increased frequency with only small amounts of urine. She also states she has been having nausea/vomiting and diarrhea for approximately 2 months. She denies any associated fever but endorses chills 2 weeks. She reports associated dizziness and weakness that was worse today. She is supposed to be on multiple medications for her medical comorbidities however stopped taking all of them because she was "tired of taking handfuls of pills." She states she started taking her potassium again approximately 1.5 weeks ago because she was having muscle cramps. She denies any chest pain or shortness of breath. No lateralizing signs/symptoms. Review of Systems All other systems reviewed negative except as stated in HPI [facility] - History History Provided By: Patient - Medical History Medical History: Medical History (Last Updated 12/30/17 @ 20:59 by Mame Chambers MD) Depression Diabetes HTN (hypertension) Hyperlipidemia - Surgical History Surgical History: Surgical History (Last Reviewed 12/30/17 @ 21:00 by Mame Chambers MD) No history of previous surgery - Family History Family History: Family History (Last Reviewed 12/30/17 @ 21:00 by Mame Chambers MD) Other Ovarian cancer Pancreatic cancer - Tobacco History Second Hand Smoke Exposure: Yes Tobacco Use In Past 30 Days: Yes Smoking Status: Current every day smoker Tobacco Type: Cigarettes - Alcohol History How Often Do You Have a Drink Containing Alcohol: 4 or more times a week - Substance Use History Substance History: No History of Abuse - Travel History Recent Travel in the [place] Within the Last 8 Weeks: No Recent Travel Out of the Country Within the Last 8 Weeks: No - Immunization History Tetanus Immunization: >5 Years Hx Influenza Vaccine This Season: No Medications and Allergies Active Medications: Active Medications Acetaminophen (Tylenol) 650 mg PO Q4H PRN PRN Reason: Temp > 100.4 Al Hydroxide/Mg Hydroxide (Milk Of Magnesia Liq) 30 ml PO Q12H PRN PRN Reason: Mild Constipation Bisacodyl (Dulcolax Supp) 10 mg RECTAL DAILY PRN PRN Reason: SEVERE CONSITIPATION Sodium Chloride (Ns Inj) 1,000 mls @ 0 mls/hr IV.SIG BOLUS [facility] Last Infusion: 12/30/17 20:47 Dose: Infused Sodium Chloride (Ns Inj) 1,000 mls @ 100 mls/hr IV.CONT .Q10H [facility] Last Admin: 12/30/17 19:56 Dose: 100 mls/hr Insulin Aspart (Novolog Insulin Correctional Sugar Inj) 0 unit SQ ACHS MONIKA; Protocol Lactulose (Lactulose Liq) 30 ml PO DAILY PRN PRN Reason: SEVERE CONSITIPATION Ondansetron HCl (Zofran Inj) 4 mg IV.PUSH Q6H PRN PRN Reason: NAUSEA OR VOMITING Potassium Chloride (Klor-Con 10) 10 meq PO DAILY [facility] Senna/Docusate Sodium ([place]-Colace) 1 tab PO BID [facility] Sennosides (Senokot) 17.2 mg PO Q12H PRN PRN Reason: Moderate Constipation Sodium Chloride (Ns Flush) 2 ml IV.FLUSH PRN PRN PRN Reason: FLUSH AFTER USING IV ACCESS Last Admin: 12/30/17 17:19 Dose: 2 ml Allergies Allergy/AdvReac Type Severity Reaction Status Date / Time cephalexin Allergy Unknown VOMITS Verified 12/30/17 16:35 Home Medications Medication Instructions Recorded Confirmed Type potassium chloride [Klor-Con 10] 10 meq PO DAILY 12/30/17 12/30/17 History Exam Vital signs: Vital Signs 12/30/17 13:14 12/30/17 16:36 12/30/17 16:51 Temperature 98.2 F Pulse Rate 115 H 110 H 110 H Respiratory Rate 16 18 Blood Pressure 104/62 123/92 H Pulse Oximetry 98 97 12/30/17 19:00 12/30/17 20:51 Temperature Pulse Rate 84 Respiratory Rate 18 Blood Pressure 118/76 Pulse Oximetry 98 99 Intake & Output 12/30/17 12/30/17 12/31/17 06:59 18:59 06:59 Intake Total 1000 / 1000 1100 / 1100 Balance 1000 / 1000 1100 / 1100 Weight 58.967 kg Intake: IV 1000 / 1000 1100 / 1100 KCl 20 mEq Premix Inj 20 meq In 100 / 100 100 ml @ 50 mls/hr IV.SIG ONCE ONE Rx#:[id number] NS Inj 1,000 ML @ Wide Open IV. 1000 / 1000 1000 / 1000 SIG BOLUS MONIKA Rx#:[id number] Narrative: Gen.: No acute distress Head: Normocephalic. Atraumatic. EENT: Pupils equal round and reactive to light. Nose without drainage. Airway intact. Throat without injection. Cardiovascular: Regular rate and rhythm. No murmurs, rubs or gallops. Respiratory: Lungs clear to auscultation bilaterally. No wheezes or rhonchi. Abdomen: Soft, nontender to palpation, nondistended. No peritoneal signs. Musculoskeletal: No gross deformities. No edema. Skin: No obvious rashes or erythema. Neuro: Sensory and motor grossly intact. Cranial nerves II through XII grossly intact. Results - Labs CBC & Chem 7: 12/30/17 13:59 12/30/17 13:59 Labs: Laboratory Results - last 24 hr 12/30/17 12/30/17 12/30/17 13:45 13:59 13:59 WBC 5.6 RBC 3.35 L Hgb 13.0 Hct 37.3 MCV 111.4 H MCH 38.7 H MCHC 34.8 RDW 16.2 Plt Count 184 MPV 8.4 Neut % (Auto) 71.3 H Lymph % (Auto) 16.8 [place] % (Auto) 10.0 H Eos % (Auto) 1.4 Baso % (Auto) 0.5 Neut # (Auto) 4.0 Lymph # (Auto) 0.9 L [place] # (Auto) 0.6 Eos # (Auto) 0.1 Baso # (Auto) 0.0 WBC Differential . Differential Comment Auto diff final PT INR APTT Sodium 135 L Potassium 2.5 L* Chloride 87 L Carbon Dioxide 32.8 H Anion Gap 15 BUN 32 H Creatinine 1.73 H Estimated GFR 30 L Random Glucose 154 H Calcium 8.0 L Total Bilirubin 1.9 H AST 53 H ALT 25 Alkaline Phosphatase 51 Total Creatine Kinase CK-MB (CK-2) CK-MB (CK-2) % Troponin I Total Protein 8.3 H Albumin 4.2 Lipase 321 Urine Color [place] Urine Clarity Cloudy H Urine pH 5.0 Ur Specific [place] 1.030 Urine Protein 100 H Urine Glucose (UA) 50 Urine Ketones Trace H Urine Occult Blood Negative Urine Nitrate Positive H Urine Bilirubin Moderate H Urine Ictotest Urine Urobilinogen 4 or greater Ur Leukocyte Esterase Trace H Urine RBC 1 Urine WBC 6 H Ur Squamous Epith Cells 22 Urine Bacteria Moderate H Hyaline Casts 33 Urine Mucus Many H Micro UA Comment Culture indicated Ur Microscopic Review Not Reportable Urine Culture Comments Culture indicated 12/30/17 12/30/17 16:40 16:40 WBC RBC Hgb Hct MCV MCH MCHC RDW Plt Count MPV Neut % (Auto) Lymph % (Auto) [place] % (Auto) Eos % (Auto) Baso % (Auto) Neut # (Auto) Lymph # (Auto) [place] # (Auto) Eos # (Auto) Baso # (Auto) WBC Differential Differential Comment PT 11.6 INR 1.1 APTT 23.4 L Sodium Potassium Chloride Carbon Dioxide Anion Gap BUN Creatinine Estimated GFR Random Glucose Calcium Total Bilirubin AST ALT Alkaline Phosphatase Total Creatine Kinase 417 H CK-MB (CK-2) Less than 1.0 CK-MB (CK-2) % 0.2 Troponin I Less than 0.02 L Total Protein Albumin Lipase Urine Color Urine Clarity Urine pH Ur Specific [place] Urine Protein Urine Glucose (UA) Urine Ketones Urine Occult Blood Urine Nitrate Urine Bilirubin Urine Ictotest Urine Urobilinogen Ur Leukocyte Esterase Urine RBC Urine WBC Ur Squamous Epith Cells Urine Bacteria Hyaline Casts Urine Mucus Micro UA Comment Ur Microscopic Review Urine Culture Comments - Imaging Impressions Abdomen/Bladder Ultrasound 12/30/17 00:00 CONCLUSION: 1. Increased echotexture of both kidneys typical of chronic parenchymal disease , nonspecific but as can be related to hypertension or diabetes. 2. No obstructive uropathy or other acute abnormality demonstrated. Abdomen/Pelvis CT 12/30/17 16:45 CONCLUSION: 1. No obstruction or acute inflammatory changes. 2. Mild diverticulosis. No diverticulitis. 3. Severe fatty infiltration of the liver. Similar findings were seen previously. Caprini VTE Risk Assessment Caprini VTE Risk Assessment: No/Low Risk (score <= 1) Caprini Risk Assessment Model: Point Value = 1 Point Value = 2 Point Value = 3 Point Value = 5 Age 41-60 Minor surgery BMI > 25 kg/m2 Swollen legs Varicose veins or History of unexplained or recurrent spontaneous Oral contraceptives or hormone replacement Sepsis (< 1 month) Serious lung disease, including pneumonia (< 1 month) Abnormal pulmonary function Acute myocardial infarction Congestive heart failure (< 1 month) History of inflammatory bowel disease Medical patient at bed rest Age 61-74 Arthroscopic surgery Major open surgery (> 45 min) Laparoscopic surgery (> 45 min) Malignancy Confined to bed (> 72 hours) Immobilizing plaster cast Central venous access Age >= 75 History of VTE Family history of VTE Factor V Leiden Prothrombin [id number] Lupus anticoagulant Anticardiolipin antibodies Elevated serum homocysteine Heparin-induced thrombocytopenia Other congenital or acquired thrombophilia Stroke (< 1 month) Elective arthroplasty Hip, pelvis, or leg fracture Acute spinal cord injury (< 1 month) Prophylaxis Regimen: Total Risk Factor Score Risk Level Prophylaxis Regimen 0-1 Low Early ambulation 2 Moderate Order ONE of the following: *Sequential Compression Device (SCD) *Heparin 5000 units SQ BID 3-4 Higher Order ONE of the following medications: *Heparin 5000 units SQ TID *Enoxaparin/Lovenox 40 mg SQ daily (WT < 150 kg, CrCl > 30 mL/min) *Enoxaparin/Lovenox 30 mg SQ daily (WT < 150 kg, CrCl > 10-29 mL/min) *Enoxaparin/Lovenox 30 mg SQ BID (WT < 150 kg, CrCl > 30 mL/min) AND/OR *Sequential Compression Device (SCD) 5 or more Highest Order ONE of the following medications: *Heparin 5000 units SQ TID (Preferred with Epidurals) *Enoxaparin/Lovenox 40 mg SQ daily (WT < 150 kg, CrCl > 30 mL/min) *Enoxaparin/Lovenox 30 mg SQ daily (WT < 150 kg, CrCl > 10-29 mL/min) *Enoxaparin/Lovenox 30 mg SQ BID (WT < 150 kg, CrCl > 30 mL/min) AND *Sequential Compression Device (SCD) Assessment and Plan - Plan Assessment/plan: 1. Acute kidney insufficiency Creatinine 1.73, baseline 1.2 IV fluid hydration Monitor renal function May be secondary to nausea/vomiting given patient's symptoms 2. Hypokalemia Potassium 5 Status post p.o. and IV repletion Monitor BMP 3. Alcohol abuse [facility] protocol Thiamine/folate/multivitamin Monitor for signs of withdrawal 4. Diabetes mellitus Patient stopped taking her home metformin Sliding-scale insulin Monitor blood glucose A1c pending 5. Hypertension/hyperlipidemia Normotensive at this time Patient does not take home medications Monitor FEN Renal diet Electrolytes: As above NS at 100 cc/hour
[2017-12-30] MEDS: Senna/Docusate Sodium 8.6/50 MG Tablet PO SCH (23:48)
[2017-12-30] MEDS: Insulin NovoLIN Regular Correctional Sugar Inj SQ SCH (23:48)
[2017-12-31] MEDS: Insulin NovoLIN Regular Correctional Sugar Inj SQ SCH ×5 (04:58→20:10)
[2017-12-31] MEDS: Sod Chloride 0.9% Inj 1,000 ML IV.CONT SCH ×4 (06:51→20:32)
[2017-12-31 08:49] LABS: Baso % (Auto) 0.5 % (0.0-2.0); Eos # (Auto) 0.1 th/mm3 (0.0-0.4); Eos % (Auto) 2.3 % (0.0-4.0); Hematocrit 28.9 % (35.0-46.0); Lymph # (Auto) 0.7 th/mm3 (1.0-4.8); Lymph % (Auto) 24.4 % (9.0-44.0); Mean Corpuscular HGB Conc 34.6 % (32.0-36.0); Mean Corpuscular Hemoglobin 39.2 pg (27.0-34.0); Mean Corpuscular Volume 113.1 fL (80.0-100.0); Mean Platelet Volume 8.1 fL (7.0-11.0); Mono # (Auto) 0.4 th/mm3 (0.0-0.9); Mono % (Auto) 11.8 % (0.0-8.0); Neut # (Auto) 1.8 th/mm3 (1.8-7.7); Platelet Count 115 th/mm3 (150-450); Red Blood Count 2.56 mil/mm3 (4.00-5.30); Red Cell Distribution Width 16.3 % (11.6-17.2)
[2017-12-31 09:32] LABS: Albumin 3.2 g/dL (3.4-5.0); Calcium 6.6 mg/dL (8.5-10.1); Carbon Dioxide 26.9 meq/L (21.0-32.0)
[2017-12-31] MEDS: Senna/Docusate Sodium 8.6/50 MG Tablet PO SCH ×2 (09:37→20:10)
[2017-12-31] MEDS: Folic Acid 1 MG Tablet PO SCH (09:37)
[2017-12-31] MEDS: Multivitamin/Minerals Therapeutic Tablet PO SCH (09:37)
[2017-12-31 09:50] LABS: Potassium 2.2 meq/L (3.5-5.1)
--- NOTE | 2017-12-31 11:45 | ECG ---
Date Performed: 12/30/2017 Time Performed: 18:09:36 PTAGE: 57 years EKG: Sinus rhythm NONSPECIFIC ST & T-WAVE ABNORMALITY BORDERLINE ECG PREVIOUS TRACING : 03/07/2016 18.26 DOCTOR: Alex Botello Interpretating Date/Time 12/31/2017 11:43:15
--- NOTE | 2017-12-31 12:14 | P.PNIM ---
Subjective Interval history: No distress today. Diarrhea is still present. Diarrhea is watery. Complaints of rectal irritation. C. difficile positive on testing. Physical Exam Vital signs: Vital Signs 12/30/17 13:14 12/30/17 16:36 12/30/17 16:51 Temperature 98.2 F Pulse Rate 115 H 110 H 110 H Respiratory Rate 16 18 Blood Pressure 104/62 123/92 H Pulse Oximetry 98 97 12/30/17 19:00 12/30/17 20:51 12/31/17 00:00 Temperature 98.2 F Pulse Rate 84 78 Respiratory Rate 18 20 Blood Pressure 118/76 122/89 Pulse Oximetry 98 99 97 12/31/17 04:00 12/31/17 08:00 12/31/17 10:43 Temperature 97.5 F L 98.2 F Pulse Rate 85 83 Respiratory Rate 20 17 Blood Pressure 143/74 H 142/104 H Pulse Oximetry 95 98 97 Intake & Output 12/30/17 12/31/17 12/31/17 18:59 06:59 18:59 Intake Total 1000 / 1000 1500 / 1500 600 / 600 Balance 1000 / 1000 1500 / 1500 600 / 600 Weight 58.967 kg 63.4 kg Intake: IV 1000 / 1000 1500 / 1500 600 / 600 NS Inj 1,000 ML @ 100 mls/hr IV 400 / 400 600 / 600 .CONT .Q10H MONIKA Rx#:[id number] KCl 20 mEq Premix Inj 20 meq In 100 / 100 100 ml @ 50 mls/hr IV.SIG ONCE ONE Rx#:[id number] NS Inj 1,000 ML @ Wide Open IV. 1000 / 1000 1000 / 1000 SIG BOLUS MONIKA Rx#:[id number] Oral 0 / 0 Other: # Voids 4 # Incontinent Voids 4 Date of Last Bowel Movement 12/30/17 12/30/17 # Bowel Movements 1 Weight On Admission 63.4 kg Narrative: GENERAL: NAD, A&Ox3 HEAD: Normocephalic. NECK: Supple, trachea midline. No lymphadenopathy. EYES: No scleral icterus. No injection or drainage. CARDIOVASCULAR: Regular rate and rhythm without murmurs, gallops, or rubs. RESPIRATORY: Breath sounds equal bilaterally. No accessory muscle use. GASTROINTESTINAL: Abdomen soft, non-tender, nondistended. MUSCULOSKELETAL: No cyanosis, or edema. SKIN: Warm and dry. NEURO: No focal neurological deficits. Results - Labs CBC & Chem 7: 12/31/17 06:58 12/31/17 06:58 Laboratory Results - last 24 hr 12/30/17 12/30/17 12/30/17 13:45 13:59 13:59 WBC 5.6 RBC 3.35 L Hgb 13.0 Hct 37.3 MCV 111.4 H MCH 38.7 H MCHC 34.8 RDW 16.2 Plt Count 184 MPV 8.4 Neut % (Auto) 71.3 H Lymph % (Auto) 16.8 [place] % (Auto) 10.0 H Eos % (Auto) 1.4 Baso % (Auto) 0.5 Neut # (Auto) 4.0 Lymph # (Auto) 0.9 L [place] # (Auto) 0.6 Eos # (Auto) 0.1 Baso # (Auto) 0.0 WBC Differential . Differential Comment Auto diff final PT INR APTT Sodium 135 L Potassium 2.5 L* Chloride 87 L Carbon Dioxide 32.8 H Anion Gap 15 BUN 32 H Creatinine 1.73 H Estimated GFR 30 L POC Glucose Random Glucose 154 H Calcium 8.0 L Prot Corrected Calcium Total Bilirubin 1.9 H AST 53 H ALT 25 Alkaline Phosphatase 51 Total Creatine Kinase CK-MB (CK-2) CK-MB (CK-2) % Troponin I Total Protein 8.3 H Albumin 4.2 Lipase 321 Urine Color [place] Urine Clarity Cloudy H Urine pH 5.0 Ur Specific [place] 1.030 Urine Protein 100 H Urine Glucose (UA) 50 Urine Ketones Trace H Urine Occult Blood Negative Urine Nitrate Positive H Urine Bilirubin Moderate H Urine Ictotest Urine Urobilinogen 4 or greater Ur Leukocyte Esterase Trace H Urine RBC 1 Urine WBC 6 H Ur Squamous Epith Cells 22 Urine Bacteria Moderate H Hyaline Casts 33 Urine Mucus Many H Micro UA Comment Culture indicated Ur Microscopic Review Not Reportable Urine Culture Comments Culture indicated Stl C.difficile Tox PCR St C. diff Tox Epid 027 12/30/17 12/30/17 12/30/17 16:40 16:40 23:40 WBC RBC Hgb Hct MCV MCH MCHC RDW Plt Count MPV Neut % (Auto) Lymph % (Auto) [place] % (Auto) Eos % (Auto) Baso % (Auto) Neut # (Auto) Lymph # (Auto) [place] # (Auto) Eos # (Auto) Baso # (Auto) WBC Differential Differential Comment PT 11.6 INR 1.1 APTT 23.4 L Sodium Potassium Chloride Carbon Dioxide Anion Gap BUN Creatinine Estimated GFR POC Glucose 171 H Random Glucose Calcium Prot Corrected Calcium Total Bilirubin AST ALT Alkaline Phosphatase Total Creatine Kinase 417 H CK-MB (CK-2) Less than 1.0 CK-MB (CK-2) % 0.2 Troponin I Less than 0.02 L Total Protein Albumin Lipase Urine Color Urine Clarity Urine pH Ur Specific [place] Urine Protein Urine Glucose (UA) Urine Ketones Urine Occult Blood Urine Nitrate Urine Bilirubin Urine Ictotest Urine Urobilinogen Ur Leukocyte Esterase Urine RBC Urine WBC Ur Squamous Epith Cells Urine Bacteria Hyaline Casts Urine Mucus Micro UA Comment Ur Microscopic Review Urine Culture Comments Stl C.difficile Tox PCR St C. diff Tox Epid 027 12/31/17 12/31/17 12/31/17 03:15 06:58 06:58 WBC 3.0 L RBC 2.56 L Hgb 10.0 L D Hct 28.9 L MCV 113.1 H MCH 39.2 H MCHC 34.6 RDW 16.3 Plt Count 115 L D MPV 8.1 Neut % (Auto) 61.0 Lymph % (Auto) 24.4 [place] % (Auto) 11.8 H Eos % (Auto) 2.3 Baso % (Auto) 0.5 Neut # (Auto) 1.8 Lymph # (Auto) 0.7 L [place] # (Auto) 0.4 Eos # (Auto) 0.1 Baso # (Auto) 0.0 WBC Differential . Differential Comment Auto diff final PT INR APTT Sodium 137 Potassium 2.2 L* Chloride 97 L D Carbon Dioxide 26.9 Anion Gap 13 BUN 30 H Creatinine 1.27 H Estimated GFR 44 L POC Glucose Random Glucose 131 H Calcium 6.6 L* D Prot Corrected Calcium 7.1 L* Total Bilirubin 1.0 AST 43 H ALT 16 Alkaline Phosphatase 40 L Total Creatine Kinase CK-MB (CK-2) CK-MB (CK-2) % Troponin I Total Protein 6.0 L D Albumin 3.2 L D Lipase Urine Color Urine Clarity Urine pH Ur Specific [place] Urine Protein Urine Glucose (UA) Urine Ketones Urine Occult Blood Urine Nitrate Urine Bilirubin Urine Ictotest Urine Urobilinogen Ur Leukocyte Esterase Urine RBC Urine WBC Ur Squamous Epith Cells Urine Bacteria Hyaline Casts Urine Mucus Micro UA Comment Ur Microscopic Review Urine Culture Comments Stl C.difficile Tox PCR Positive H St C. diff Tox Epid 027 Negative Microbiology 12/30/17 13:45 Clean Catch Urine Urine Culture - Preliminary Immature growth - reincubate - Imaging Impressions Abdomen/Bladder Ultrasound 12/30/17 00:00 CONCLUSION: 1. Increased echotexture of both kidneys typical of chronic parenchymal disease , nonspecific but as can be related to hypertension or diabetes. 2. No obstructive uropathy or other acute abnormality demonstrated. Abdomen/Pelvis CT 12/30/17 16:45 CONCLUSION: 1. No obstruction or acute inflammatory changes. 2. Mild diverticulosis. No diverticulitis. 3. Severe fatty infiltration of the liver. Similar findings were seen previously. Assessment and Plan - Plan 57-year-old female admitted secondary to electrolyte disturbances and acute kidney injury, with finding of C. difficile colitis. C. difficile colitis P.o. vancomycin initiated Follow clinically for improvement Acute kidney insufficiency Dehydration Follow renal function for improvement Diarrhea is likely etiology for dehydration New IV fluid hydration Monitor renal function Hypokalemia Hypocalcemia Etiology related to colitis monitor and replace as needed History of alcohol abuse [facility] protocol Thiamine/folate/multivitamin Monitor for signs of withdrawal Diabetes mellitus type 2 Follow blood sugars Insulin sliding scale Diabetic diet Hypertension Continue baseline treatment Follow blood pressures Adjust treatments as needed Hyperlipidemia Continue present treatment Follow as an outpatient DVT prophylaxis SCDs
[2017-12-31 16:28] LABS: Hemoglobin A1c 7.5 % (4.3-6.0)
[2017-12-31] MEDS: Potassium Chloride 10 MEQ ER Capsule PO SCH (20:32)
[2018-01-01] MEDS: Sod Chloride 0.9% Inj 1,000 ML IV.CONT SCH ×5 (01:30→22:13)
[2018-01-01] MEDS: Insulin NovoLIN Regular Correctional Sugar Inj SQ SCH ×5 (07:41→22:11)
[2018-01-01 08:06] LABS: Baso % (Auto) 0.8 % (0.0-2.0); Eos # (Auto) 0.1 th/mm3 (0.0-0.4); Eos % (Auto) 2.4 % (0.0-4.0); Hemoglobin 10.6 gm/dL (11.6-15.3); Lymph # (Auto) 0.8 th/mm3 (1.0-4.8); Lymph % (Auto) 25.7 % (9.0-44.0); Mean Corpuscular HGB Conc 34.1 % (32.0-36.0); Mean Corpuscular Hemoglobin 38.7 pg (27.0-34.0); Mean Corpuscular Volume 113.3 fL (80.0-100.0); Mean Platelet Volume 8.2 fL (7.0-11.0); Mono # (Auto) 0.4 th/mm3 (0.0-0.9); Neut # (Auto) 1.9 th/mm3 (1.8-7.7); Neut % (Auto) 59.1 % (16.0-70.0); Platelet Count 148 th/mm3 (150-450); Red Blood Count 2.73 mil/mm3 (4.00-5.30); Red Cell Distribution Width 16.8 % (11.6-17.2); White Blood Count 3.2 th/mm3 (4.0-11.0)
[2018-01-01] MEDS: Senna/Docusate Sodium 8.6/50 MG Tablet PO SCH ×3 (08:21→22:16)
[2018-01-01] MEDS: Multivitamin/Minerals Therapeutic Tablet PO SCH (08:21)
[2018-01-01] MEDS: Folic Acid 1 MG Tablet PO SCH (08:21)
[2018-01-01] MEDS: Potassium Chloride 10 MEQ ER Capsule PO SCH ×2 (08:21→22:11)
[2018-01-01 08:33] LABS: Albumin 3.3 g/dL (3.4-5.0); Calcium 6.7 mg/dL (8.5-10.1); Carbon Dioxide 24.9 meq/L (21.0-32.0); Total Protein 6.4 g/dL (6.4-8.2)
[2018-01-01 08:40] LABS: Potassium 2.6 meq/L (3.5-5.1)
[2018-01-01] MEDS ORDERED: Calcium Carbonate 500 MG Tablet PO ONE (08:57)
--- NOTE | 2018-01-01 12:28 | P.PNIM ---
Subjective Interval history: Electrolytes remain disrupted. Calcium is low. Significantly low potassium level this morning. Patient does have some improvement in diarrhea today compared to yesterday. Physical Exam Vital signs: Vital Signs 12/31/17 14:02 12/31/17 16:00 12/31/17 16:43 Temperature 97.8 F Pulse Rate 74 81 Respiratory Rate 17 Blood Pressure 141/107 H Pulse Oximetry 98 96 12/31/17 20:00 01/01/18 00:00 01/01/18 04:00 Temperature 98.3 F 98.0 F 98.2 F Pulse Rate 89 77 68 Respiratory Rate 18 18 18 Blood Pressure 158/88 H 176/88 H 142/88 H Pulse Oximetry 97 96 95 01/01/18 08:00 Temperature 97.7 F Pulse Rate 88 Respiratory Rate 18 Blood Pressure 164/112 H Pulse Oximetry 99 Intake & Output 12/31/17 01/01/18 01/01/18 18:59 06:59 18:59 Intake Total 1560 / 1560 1999 Balance 1560 / 1560 1999 Weight 65.5 kg Intake: IV 600 / 600 1999 NS Inj 1,000 ML @ 100 mls/hr IV 600 / 600 1999 .CONT .Q10H MONIKA Rx#:[id number] Oral 960 / 960 Other: # Voids 3 5 Date of Last Bowel Movement 12/31/17 12/30/17 # Bowel Movements 1 Narrative: GENERAL: NAD, A&Ox3 HEAD: Normocephalic. NECK: Supple, trachea midline. No lymphadenopathy. EYES: No scleral icterus. No injection or drainage. CARDIOVASCULAR: Regular rate and rhythm without murmurs, gallops, or rubs. RESPIRATORY: Breath sounds equal bilaterally. No accessory muscle use. GASTROINTESTINAL: Abdomen soft, non-tender, nondistended. MUSCULOSKELETAL: No cyanosis, or edema. SKIN: Warm and dry. NEURO: No focal neurological deficits. Results - Labs CBC & Chem 7: 01/01/18 07:44 01/01/18 07:44 Laboratory Results - last 24 hr 12/30/17 12/31/17 12/31/17 13:59 12:33 16:53 WBC RBC Hgb Hct MCV MCH MCHC RDW Plt Count MPV Neut % (Auto) Lymph % (Auto) [place] % (Auto) Eos % (Auto) Baso % (Auto) Neut # (Auto) Lymph # (Auto) [place] # (Auto) Eos # (Auto) Baso # (Auto) WBC Differential Differential Comment Sodium Potassium Chloride Carbon Dioxide Anion Gap BUN Creatinine Estimated GFR POC Glucose 147 H 165 H Random Glucose Hemoglobin A1c 7.5 H Calcium Prot Corrected Calcium Total Bilirubin AST ALT Alkaline Phosphatase Total Protein Albumin 12/31/17 01/01/18 01/01/18 20:10 04:31 07:44 WBC 3.2 L RBC 2.73 L Hgb 10.6 L Hct 31.0 L MCV 113.3 H MCH 38.7 H MCHC 34.1 RDW 16.8 Plt Count 148 L MPV 8.2 Neut % (Auto) 59.1 Lymph % (Auto) 25.7 [place] % (Auto) 12.0 H Eos % (Auto) 2.4 Baso % (Auto) 0.8 Neut # (Auto) 1.9 Lymph # (Auto) 0.8 L [place] # (Auto) 0.4 Eos # (Auto) 0.1 Baso # (Auto) 0.0 WBC Differential . Differential Comment Auto diff final Sodium Potassium Chloride Carbon Dioxide Anion Gap BUN Creatinine Estimated GFR POC Glucose 137 H 116 H Random Glucose Hemoglobin A1c Calcium Prot Corrected Calcium Total Bilirubin AST ALT Alkaline Phosphatase Total Protein Albumin 01/01/18 07:44 WBC RBC Hgb Hct MCV MCH MCHC RDW Plt Count MPV Neut % (Auto) Lymph % (Auto) [place] % (Auto) Eos % (Auto) Baso % (Auto) Neut # (Auto) Lymph # (Auto) [place] # (Auto) Eos # (Auto) Baso # (Auto) WBC Differential Differential Comment Sodium 139 Potassium 2.6 L* Chloride 102 Carbon Dioxide 24.9 Anion Gap 12 BUN 17 Creatinine 1.00 Estimated GFR 57 L POC Glucose Random Glucose 106 Hemoglobin A1c Calcium 6.7 L* Prot Corrected Calcium 7.1 L* Total Bilirubin 0.5 AST 47 H ALT 24 Alkaline Phosphatase 48 Total Protein 6.4 Albumin 3.3 L Microbiology 12/30/17 13:45 Clean Catch Urine Urine Culture - Final 50-100,000 cfu/mL mixed pb (probable contaminants ) 12/31/17 03:15 Stool Clostridium difficile GDH Antigen - Final Positive - C. difficile Antigen detected. 12/31/17 03:15 Stool Clostridium difficile Toxin Assay - Final Negative - No C. difficile Toxin A or B detected. Assessment and Plan - Plan 57-year-old female admitted secondary to electrolyte disturbances and acute kidney injury, with finding of C. difficile colitis. Electrolyte disturbances related to diarrhea. Diarrhea show some improvement. Electrolytes will now correct through time. Continue baseline supplementation for electrolytes. Continue electrolyte monitoring. Labs ordered for further monitoring. Additional treatments based on lab findings. C. difficile colitis P.o. vancomycin initiated Follow clinically for improvement Acute kidney insufficiency Dehydration Follow renal function for improvement Diarrhea is likely etiology for dehydration New IV fluid hydration Monitor renal function Hypokalemia Hypocalcemia Etiology related to colitis monitor and replace as needed History of alcohol abuse CIWA protocol Thiamine/folate/multivitamin Monitor for signs of withdrawal Diabetes mellitus type 2 Follow blood sugars Insulin sliding scale Diabetic diet Hypertension Continue baseline treatment Follow blood pressures Adjust treatments as needed Hyperlipidemia Continue present treatment Follow as an outpatient DVT prophylaxis SCDs
[2018-01-02] MEDS: Insulin NovoLIN Regular Correctional Sugar Inj SQ SCH ×5 (04:37→20:50)
[2018-01-02] MEDS: Sod Chloride 0.9% Inj 1,000 ML IV.CONT SCH (08:17)
[2018-01-02] MEDS: Folic Acid 1 MG Tablet PO SCH (08:23)
[2018-01-02] MEDS: Potassium Chloride 10 MEQ ER Capsule PO SCH ×2 (08:23→20:53)
[2018-01-02] MEDS: Multivitamin/Minerals Therapeutic Tablet PO SCH (08:23)
[2018-01-02] MEDS: Senna/Docusate Sodium 8.6/50 MG Tablet PO SCH ×2 (08:24→20:53)
[2018-01-02 09:56] LABS: Baso % (Auto) 0.8 % (0.0-2.0); Eos # (Auto) 0.1 th/mm3 (0.0-0.4); Eos % (Auto) 2.5 % (0.0-4.0); Hematocrit 27.6 % (35.0-46.0); Hemoglobin 9.6 gm/dL (11.6-15.3); Lymph # (Auto) 0.7 th/mm3 (1.0-4.8); Lymph % (Auto) 19.6 % (9.0-44.0); Mean Corpuscular HGB Conc 34.6 % (32.0-36.0); Mean Corpuscular Volume 112.8 fL (80.0-100.0); Mean Platelet Volume 8.2 fL (7.0-11.0); Mono # (Auto) 0.3 th/mm3 (0.0-0.9); Mono % (Auto) 9.7 % (0.0-8.0); Neut # (Auto) 2.3 th/mm3 (1.8-7.7); Neut % (Auto) 67.4 % (16.0-70.0); Platelet Count 176 th/mm3 (150-450); Red Blood Count 2.45 mil/mm3 (4.00-5.30); Red Cell Distribution Width 16.3 % (11.6-17.2); White Blood Count 3.4 th/mm3 (4.0-11.0)
[2018-01-02 10:42] LABS: Albumin 3.2 g/dL (3.4-5.0); Calcium 6.4 mg/dL (8.5-10.1); Carbon Dioxide 23.5 meq/L (21.0-32.0)
[2018-01-02] MEDS ORDERED: ALPRAZolam 0.25 MG Tablet PO PRN (11:05)
[2018-01-02 11:10] LABS: Potassium 2.8 meq/L (3.5-5.1)
--- NOTE | 2018-01-02 11:45 | P.PNIM ---
Subjective Interval history: Potassium remains critically low. Calcium remains significantly low. Replacements provided. Further monitoring needed. Diarrhea has improved. Patient reports anxiety today. Physical Exam Vital signs: Vital Signs 01/01/18 12:00 01/01/18 16:00 01/01/18 17:56 Temperature 98.2 F Pulse Rate 81 73 Respiratory Rate 18 Blood Pressure 158/95 H Pulse Oximetry 98 98 01/01/18 20:00 01/01/18 22:10 01/02/18 00:00 Temperature 99.0 F 100.1 F H Pulse Rate 106 H 84 Respiratory Rate 18 16 18 Blood Pressure 176/110 H 180/102 H Pulse Oximetry 98 98 01/02/18 04:00 01/02/18 08:00 Temperature 97.8 F 97.5 F L Pulse Rate 75 72 Respiratory Rate 20 18 Blood Pressure 152/77 H 166/97 H Pulse Oximetry 97 100 Intake & Output 01/01/18 01/02/18 01/02/18 18:59 06:59 18:59 Intake Total 960 / 960 1100 / 1100 0 / 0 Balance 960 / 960 1100 / 1100 0 / 0 Intake: IV 1100 / 1100 0 / 0 NS Inj 1,000 ML @ 100 mls/hr IV 1100 / 1100 0 / 0 .CONT .Q10H MONIKA Rx#:[id number] Oral 960 / 960 Other: # Voids 4 Narrative: GENERAL: NAD, A&Ox3 HEAD: Normocephalic. NECK: Supple, trachea midline. No lymphadenopathy. EYES: No scleral icterus. No injection or drainage. CARDIOVASCULAR: Regular rate and rhythm without murmurs, gallops, or rubs. RESPIRATORY: Breath sounds equal bilaterally. No accessory muscle use. GASTROINTESTINAL: Abdomen soft, non-tender, nondistended. MUSCULOSKELETAL: No cyanosis, or edema. SKIN: Warm and dry. NEURO: No focal neurological deficits. Results - Labs CBC & Chem 7: 01/02/18 08:44 01/02/18 08:44 Laboratory Results - last 24 hr 01/01/18 01/02/18 01/02/18 13:17 08:44 08:44 WBC 3.4 L RBC 2.45 L Hgb 9.6 L Hct 27.6 L MCV 112.8 H MCH 39.0 H MCHC 34.6 RDW 16.3 Plt Count 176 MPV 8.2 Neut % (Auto) 67.4 Lymph % (Auto) 19.6 [place] % (Auto) 9.7 H Eos % (Auto) 2.5 Baso % (Auto) 0.8 Neut # (Auto) 2.3 Lymph # (Auto) 0.7 L [place] # (Auto) 0.3 Eos # (Auto) 0.1 Baso # (Auto) 0.0 WBC Differential . Differential Comment Auto diff final Sodium 139 Potassium 3.0 L 2.8 L* Chloride 102 Carbon Dioxide 23.5 Anion Gap 14 BUN 10 Creatinine 0.84 Estimated GFR 70 L POC Glucose Random Glucose 115 H Calcium 6.4 L* Prot Corrected Calcium 6.9 L* Total Bilirubin 0.5 AST 52 H ALT 28 Alkaline Phosphatase 48 Total Protein 6.0 L Albumin 3.2 L 01/02/18 09:18 WBC RBC Hgb Hct MCV MCH MCHC RDW Plt Count MPV Neut % (Auto) Lymph % (Auto) [place] % (Auto) Eos % (Auto) Baso % (Auto) Neut # (Auto) Lymph # (Auto) [place] # (Auto) Eos # (Auto) Baso # (Auto) WBC Differential Differential Comment Sodium Potassium Chloride Carbon Dioxide Anion Gap BUN Creatinine Estimated GFR POC Glucose 120 H Random Glucose Calcium Prot Corrected Calcium Total Bilirubin AST ALT Alkaline Phosphatase Total Protein Albumin Microbiology 12/30/17 13:45 Clean Catch Urine Urine Culture - Final 50-100,000 cfu/mL mixed pb (probable contaminants ) Assessment and Plan - Plan 57-year-old female admitted secondary to electrolyte disturbances and acute kidney injury, with finding of C. difficile colitis. Diarrhea is improving. Electrolyte disturbance is not yet stabilized. Continue baseline supplementation for electrolytes. Continue electrolyte monitoring. Labs ordered for further monitoring. Additional treatments based on lab findings. IV fluids discontinued. C. difficile colitis P.o. vancomycin initiated Follow clinically for improvement Acute kidney insufficiency Dehydration Follow renal function for improvement Diarrhea is likely etiology for dehydration New IV fluid hydration Monitor renal function Hypokalemia Hypocalcemia Etiology related to colitis monitor and replace as needed History of alcohol abuse Anxiety Possible DTs As needed Xanax CIWA protocol Thiamine/folate/multivitamin Monitor for signs of withdrawal Diabetes mellitus type 2 Follow blood sugars Insulin sliding scale Diabetic diet Hypertension Continue baseline treatment Follow blood pressures Adjust treatments as needed Hyperlipidemia Continue present treatment Follow as an outpatient DVT prophylaxis SCDs
[2018-01-02] MEDS: ALPRAZolam 0.5 MG Tablet PO PRN ×2 (17:04→23:16)
[2018-01-03] MEDS: Insulin NovoLIN Regular Correctional Sugar Inj SQ SCH ×3 (04:52→11:56)
[2018-01-03] MEDS: ALPRAZolam 0.5 MG Tablet PO PRN ×2 (05:35→11:43)
[2018-01-03 07:08] LABS: Baso % (Auto) 0.9 % (0.0-2.0); Eos # (Auto) 0.1 th/mm3 (0.0-0.4); Eos % (Auto) 2.3 % (0.0-4.0); Hematocrit 29.5 % (35.0-46.0); Hemoglobin 10.2 gm/dL (11.6-15.3); Lymph # (Auto) 0.7 th/mm3 (1.0-4.8); Lymph % (Auto) 21.9 % (9.0-44.0); Mean Corpuscular HGB Conc 34.4 % (32.0-36.0); Mean Corpuscular Hemoglobin 38.4 pg (27.0-34.0); Mean Corpuscular Volume 111.6 fL (80.0-100.0); Mean Platelet Volume 8.4 fL (7.0-11.0); Mono # (Auto) 0.4 th/mm3 (0.0-0.9); Neut # (Auto) 2.1 th/mm3 (1.8-7.7); Neut % (Auto) 62.9 % (16.0-70.0); Platelet Count 212 th/mm3 (150-450); Red Blood Count 2.65 mil/mm3 (4.00-5.30); Red Cell Distribution Width 16.7 % (11.6-17.2); White Blood Count 3.4 th/mm3 (4.0-11.0)
[2018-01-03 07:41] LABS: Calcium 6.7 mg/dL (8.5-10.1); Carbon Dioxide 24.6 meq/L (21.0-32.0); Potassium 3.2 meq/L (3.5-5.1); Total Protein 6.1 g/dL (6.4-8.2)
[2018-01-03] MEDS ORDERED: Magnesium Oxide 400 MG Tablet PO ONE (08:32)
[2018-01-03 08:54] VITALS: BP 158/103; RESP 19; TEMP 97.5; O2SAT 98
[2018-01-03] MEDS: Potassium Chloride 10 MEQ ER Capsule PO SCH (10:16)
[2018-01-03] MEDS: Folic Acid 1 MG Tablet PO SCH (10:16)
[2018-01-03] MEDS: Multivitamin/Minerals Therapeutic Tablet PO SCH (10:17)
[2018-01-03] MEDS: Senna/Docusate Sodium 8.6/50 MG Tablet PO SCH (10:26)
--- NOTE | 2018-01-03 14:22 | P.DS ---
Date of admission: 12/30/17 21:09 Primary care physician: No Primary Care Physician Brief History from admission: 57-year-old female with past medical history significant for hypertension, hyperlipidemia, diabetes mellitus and depression presents to the emergency department for the evaluation of nausea/vomiting/diarrhea, dizziness and oliguria. The patient reports that starting today she had multiple episodes of urination but felt as though she was unable to completely empty her bladder. She reports increased frequency with only small amounts of urine. She also states she has been having nausea/vomiting and diarrhea for approximately 2 months. She denies any associated fever but endorses chills 2 weeks. She reports associated dizziness and weakness that was worse today. She is supposed to be on multiple medications for her medical comorbidities however stopped taking all of them because she was "tired of taking handfuls of pills." She states she started taking her potassium again approximately 1.5 weeks ago because she was having muscle cramps. She denies any chest pain or shortness of breath. No lateralizing signs/symptoms. DS: Medications - Discharge Medications Prescriptions: calcium carbonate 400 mg PO BID #10 tab magnesium oxide 400 mg PO DAILY #5 tab potassium chloride 20 meq PO BID #20 cap vancomycin 500 mg PO QID 10 Days #40 each DS: Summary Hospital Course: Mrs. Taylor is a 57 year old female admitted with C. Diff colitis, with watery diarrhea. On treatment her diarrhea has improved. She has persistent electrolyte disturbance, which is improving with treatments. A baseline hypokalemia is present. She is now stabilized and safe for treatment with continuation of electrolyte supplementation at higher than baseline doses for five days then return to baseline treatment. Discharge home today. - Time Spent with Patient Total time spent providing and/or coordinating discharge services: Less than 30 minutes - Quality: VTE Deep Vein Thrombosis/Pulmonary Embolism Present on Admission: No Exam Vital signs: Vital Signs 01/02/18 16:00 01/02/18 20:00 01/02/18 23:16 Temperature 97.6 F 98.4 F Pulse Rate 77 82 Respiratory Rate 18 20 18 Blood Pressure 177/101 H Pulse Oximetry 99 97 01/03/18 00:00 01/03/18 04:00 01/03/18 05:34 Temperature 98.9 F Pulse Rate 73 67 Respiratory Rate 20 18 Blood Pressure 167/103 H Pulse Oximetry 95 01/03/18 06:00 01/03/18 08:00 Temperature 97.5 F L Pulse Rate 69 Respiratory Rate 19 Blood Pressure 162/96 H 158/103 H Pulse Oximetry 98 Intake & Output 01/02/18 01/03/18 01/03/18 18:59 06:59 18:59 Intake Total 480 / 480 Balance 480 / 480 Weight 66 kg Intake: IV 0 / 0 NS Inj 1,000 ML @ 100 mls/hr IV 0 / 0 .CONT .Q10H MONIKA Rx#:[id number] Oral 480 / 480 Results Procedures completed during hospitalization: None Labs on day of discharge: Labs from last 24 hours 01/03/18 01/03/18 01/03/18 12:00 07:44 05:51 WBC RBC Hgb Hct MCV MCH MCHC RDW Plt Count MPV Neut % (Auto) Lymph % (Auto) [place] % (Auto) Eos % (Auto) Baso % (Auto) Neut # (Auto) Lymph # (Auto) [place] # (Auto) Eos # (Auto) Baso # (Auto) WBC Differential Differential Comment Sodium 141 Potassium 3.1 L 3.2 L Chloride 105 Carbon Dioxide 24.6 Anion Gap 11 BUN 10 Creatinine 0.97 Estimated GFR 59 L POC Glucose 131 H Random Glucose 120 H Calcium 6.7 L* Prot Corrected Calcium 7.2 L* Total Bilirubin 0.5 AST 30 ALT 23 Alkaline Phosphatase 46 Total Protein 6.1 L Albumin 3.0 L 01/03/18 01/03/18 01/02/18 05:51 04:20 20:12 WBC 3.4 L RBC 2.65 L Hgb 10.2 L Hct 29.5 L MCV 111.6 H MCH 38.4 H MCHC 34.4 RDW 16.7 Plt Count 212 MPV 8.4 Neut % (Auto) 62.9 Lymph % (Auto) 21.9 [place] % (Auto) 12.0 H Eos % (Auto) 2.3 Baso % (Auto) 0.9 Neut # (Auto) 2.1 Lymph # (Auto) 0.7 L [place] # (Auto) 0.4 Eos # (Auto) 0.1 Baso # (Auto) 0.0 WBC Differential . Differential Comment Auto diff final Sodium Potassium Chloride Carbon Dioxide Anion Gap BUN Creatinine Estimated GFR POC Glucose 155 H 171 H Random Glucose Calcium Prot Corrected Calcium Total Bilirubin AST ALT Alkaline Phosphatase Total Protein Albumin 01/02/18 01/02/18 17:06 16:59 WBC RBC Hgb Hct MCV MCH MCHC RDW Plt Count MPV Neut % (Auto) Lymph % (Auto) [place] % (Auto) Eos % (Auto) Baso % (Auto) Neut # (Auto) Lymph # (Auto) [place] # (Auto) Eos # (Auto) Baso # (Auto) WBC Differential Differential Comment Sodium Potassium 3.1 L Chloride Carbon Dioxide Anion Gap BUN Creatinine Estimated GFR POC Glucose 135 H Random Glucose Calcium Prot Corrected Calcium Total Bilirubin AST ALT Alkaline Phosphatase Total Protein Albumin - Impressions ITS Impressions Abdomen/Bladder Ultrasound 12/30/17 00:00 CONCLUSION: 1. Increased echotexture of both kidneys typical of chronic parenchymal disease , nonspecific but as can be related to hypertension or diabetes. 2. No obstructive uropathy or other acute abnormality demonstrated. Abdomen/Pelvis CT 12/30/17 16:45 CONCLUSION: 1. No obstruction or acute inflammatory changes. 2. Mild diverticulosis. No diverticulitis. 3. Severe fatty infiltration of the liver. Similar findings were seen previously. Discharge Plan - Discharge Disposition Patient Disposition: 01 Discharge Home - Discharge Condition Condition: Stable - Discharge Order Discharge Orders: Discharge Order (Routine); Ordered 01/03/18 Ordered By: Gokul Valentino - Discharge Details Anticipated Discharge Date: 01/03/18 - Physicians Team Primary Care Provider: Primary Care Felicia,Katie Attending Provider: Gokul Valentino
[2018-01-03 20:10] VITALS: PULSE 68
[2018-01-04] MEDS ORDERED: Magnesium Oxide 400 MG Tablet PO SCH (09:00)
== END 2018-01-03 15:39 | disposition home or self-care (01) ==
LOC: NEPD 12:20 → NEDA 18:37 → INTOOBSV 18:37 → N04 22:00
PROVIDERS: ADMIT Hospitalist; ATTEND Hospitalist

== ENCOUNTER 2018-01-10 18:49 | Inpatient (IN) ==
[2018-01-10] MEDS ORDERED: Famotidine PF Inj 20 MG/2 ML Vial IV.PUSH ONE (18:59)
[2018-01-10] MEDS ORDERED: MethylPREDNISolone Sod Succinate Inj 125 MG/2 ML Vial IV.PUSH ONE (18:59)
[2018-01-10 19:12] LABS: Baso # (Auto) 0.1 th/mm3 (0.0-0.2); Baso % (Auto) 1.1 % (0.0-2.0); Eos # (Auto) 0.2 th/mm3 (0.0-0.4); Eos % (Auto) 1.7 % (0.0-4.0); Hematocrit 39.5 % (35.0-46.0); Hemoglobin 13.4 gm/dL (11.6-15.3); Lymph # (Auto) 2.7 th/mm3 (1.0-4.8); Lymph % (Auto) 29.8 % (9.0-44.0); Mean Corpuscular HGB Conc 33.8 % (32.0-36.0); Mean Corpuscular Hemoglobin 36.6 pg (27.0-34.0); Mean Corpuscular Volume 108.3 fL (80.0-100.0); Mean Platelet Volume 7.8 fL (7.0-11.0); Mono # (Auto) 0.6 th/mm3 (0.0-0.9); Mono % (Auto) 6.2 % (0.0-8.0); Neut # (Auto) 5.5 th/mm3 (1.8-7.7); Neut % (Auto) 61.2 % (16.0-70.0); Platelet Count 436 th/mm3 (150-450); Red Blood Count 3.65 mil/mm3 (4.00-5.30); Red Cell Distribution Width 17.7 % (11.6-17.2); White Blood Count 9.1 th/mm3 (4.0-11.0)
[2018-01-10 19:20] LABS: Chloride 95 meq/L (98-107); Potassium 4.8 meq/L (3.5-5.1); Sodium 130 meq/L (136-145)
--- NOTE | 2018-01-10 19:22 | XR ---
EXAM DATE: 01/10/2018 7:12 PM EDT AGE/SEX: 57 years / Female INDICATIONS: Respiratory disease. Please rule out infiltrate. CLINICAL DATA: This is the patient's initial encounter. Patient reports that signs and symptoms have been present for 1 day and indicates a pain score of 6/10. MEDICAL/SURGICAL HISTORY: . C-diff. None. COMPARISON: [facility] [place], CHEST SINGLE AP, 03/07/2016. . FINDINGS: The lungs are clear without infiltrate, nodule, or mass. There is no appreciable pleural effusion fo r technique. Heart and mediastinum are unremarkable. CONCLUSION: No acute cardiopulmonary disease. Electronically signed by: Jeannine Hinojosa MD 01/10/2018 7:20 PM EDT
[2018-01-10 19:23] LABS: Calcium 10.8 mg/dL (8.5-10.1)
[2018-01-10 19:24] LABS: Albumin 4.1 g/dL (3.4-5.0); Anion Gap 12 meq/L (5-15); Blood Urea Nitrogen 26 mg/dL (7-18); Carbon Dioxide 23.1 meq/L (21.0-32.0); Glucose,Random 146 mg/dL (74-106); Magnesium 1.6 mg/dL (1.5-2.5)
[2018-01-10] MEDS ORDERED: Magnesium Sulfate Inj 2 GM in Sodium Chlor 0.9% Inj 96 ML IV.SIG ONE (19:26)
[2018-01-10 19:27] LABS: Alanine Aminotransferase 24 U/L (10-53); Aspartate Aminotransferase 21 U/L (15-37); Glomerular Filtration Rate 13 mL/min (>89)
--- NOTE | 2018-01-10 19:27 | ED ---
HPI General Chief complaint: Allergic Reaction Stated complaint: Facial Swelling Time Seen by Provider: 01/10/18 18:52 Source: patient, family, RN notes reviewed and old records reviewed Mode of arrival: wheelchair History of Present Illness HPI narrative: 57yF presenting with facial swelling. The patient says that around 1 PM today she began to notice swelling of her upper lip; her daughters state that over the past 1-2 hours prior to arrival the swelling has gotten significantly worse. The patient admits to feeling "tightness in my chest" but denies difficulty speaking or swallowing, cough, or wheezing. She has taken lisinopril for the past several years. No history of facial trauma or angioedema / anaphylaxis in the past. New meds include PO vanco and potassium (below). Patient was admitted to [facility] from 12/30-01/03 for C diff colitis , hypokalemia, and hyponatremia; discharged home on oral potassium supplementation and PO vancomycin. No other known new exposures. Family history non-contributory (specifically, no history of angioedema). Related Data Home Medications Medication Instructions Recorded Confirmed potassium chloride [Klor-Con 10] 10 meq PO DAILY 12/30/17 01/10/18 lisinopril 10 mg PO DAILY 01/10/18 01/10/18 spironolactone 25 mg PO DAILY 01/10/18 01/10/18 Previous Rx's Medication Instructions Recorded calcium carbonate 400 mg PO BID #10 tab 01/03/18 magnesium oxide 400 mg PO DAILY #5 tab 01/03/18 potassium chloride 20 meq PO BID #20 cap 01/03/18 vancomycin 500 mg PO QID 10 Days #40 each 01/03/18 Allergies Allergy/AdvReac Type Severity Reaction Status Date / Time cephalexin Allergy Unknown VOMITS Verified 01/10/18 19:30 Review of Systems ROS: all other systems reviewed are negative PMFSH History History Provided By: Patient Medical History Medical History Depression (Acute) Diabetes (Acute) HTN (hypertension) (Acute) History of Clostridium difficile infection (Acute) Hyperlipidemia (Acute) Hypokalemia (Acute) Surgical History Surgical History No history of previous surgery (Acute) Family History Family History Other Ovarian cancer Pancreatic cancer Social History Social History Substance History: No History of Abuse Second Hand Smoke Exposure: No Smoking Status: Current every day smoker Tobacco Type: Cigarettes How Often Do You Have a Drink Containing Alcohol: Monthly or less Recent Travel in [facility] within the Last 8 Weeks: No Recent Out of Country Travel within the Last 8 Weeks: No Exam Const General: in distress and anxious HENMT Other: Significant swelling of upper lip to nasolabial folds No tongue swelling, Mallampati IV No trismus or drooling No stridor Eyes General: appearance normal, both eyes and all related structures Pupils: PERRL Neck Neck: trachea midline Chest Chest: normal inspection of the chest Resp Other: Speaking in complete sentences, no respiratory distress, normal work of breathing No wheezing or rhonchi, lungs clear to auscultation bilaterally Cardio Rate: regular rate Rhythm: regular rhythm GI Inspection: non-distended Palpation: soft and nontender Skin General: no rashes or lesions noted Neuro General: alert, awake, oriented x3 and no focal motor deficits Psych Affect: normal affect Course Initial Documented Vital Signs Temperature 97.5 F L 01/10/18 19:00 Pulse Rate 104 H 01/10/18 19:00 Respiratory Rate 18 01/10/18 19:00 Blood Pressure 101/71 01/10/18 19:00 Pulse Oximetry 97 01/10/18 19:00 Last Documented Vital Signs Temperature 97.5 F L 01/10/18 19:00 Pulse Rate 104 H 01/10/18 19:00 Respiratory Rate 18 01/10/18 19:00 Blood Pressure 106/81 01/10/18 19:33 Pulse Oximetry 97 01/10/18 19:00 Critical Care Time Critical Care Time: Yes Total Critical Care Time: 33 Attestation: Total critical care time 33 minutes. This includes examining and stabilizing the patient, gathering a history from a source other than the patient (i.e., chart review), formulating a differential diagnosis, ordering and interpreting laboratory tests and EKG, ordering and interpreting radiology tests, management of severe angioedema, discussing the patient's care with other providers ([facility]), re-evaluation at frequent intervals, and documentation. Amount of time is separate from teaching, counseling the patient and/or family, and exclusive of procedures. Medical Decision Making MDM Narrative Medical decision making narrative: Assessment: 57yF presenting with angioedema, likely related to [id number] Plan: EKG and monitor Labs Steroids, benadryl, pepcid Epinephrine if patient begins to have any airway involvement She will need transfer to the main campus for ICU level of care as she is at high risk for acute airway decompensation-- case discussed with Dr. Munroe of [facility] , who agrees. Patient understands and agrees with plan. Medical Screen Exam Complete: Yes Emergency Medical Condition: Yes Differential Diagnosis Differential Diagnosis: Differential diagnosis includes, but is not limited to: angioedema, anaphylaxis, electrolyte abnormality, dehydration, JAYME Medical Records Medical records reviewed: Yes I reviewed the patient's medical records. Lab Data Lab results reviewed: Yes I reviewed the patient's lab results. Result diagrams: 01/10/18 18:00 01/10/18 18:00 Lab Results 01/10/18 01/10/18 Range/Units 18:00 18:00 CBC w Diff Auto diff final WBC 9.1 (4.0-11.0) th/mm3 RBC 3.65 L (4.00-5.30) mil/mm3 Hgb 13.4 (11.6-15.3) gm/dL Hct 39.5 (35.0-46.0) % MCV 108.3 H (80.0-100.0) fL MCH 36.6 H (27.0-34.0) pg MCHC 33.8 (32.0-36.0) % RDW 17.7 H (11.6-17.2) % Plt Count 436 D (150-450) th/mm3 MPV 7.8 (7.0-11.0) fL Neut % (Auto) 61.2 (16.0-70.0) % Lymph % (Auto) 29.8 (9.0-44.0) % [place] % (Auto) 6.2 (0.0-8.0) % Eos % (Auto) 1.7 (0.0-4.0) % Baso % (Auto) 1.1 (0.0-2.0) % Neut # (Auto) 5.5 (1.8-7.7) th/mm3 Lymph # (Auto) 2.7 (1.0-4.8) th/mm3 [place] # (Auto) 0.6 (0.0-0.9) th/mm3 Eos # (Auto) 0.2 (0.0-0.4) th/mm3 Baso # (Auto) 0.1 (0.0-0.2) th/mm3 WBC Differential . Differential Comment . Sodium 130 L (136-145) meq/L Potassium 4.8 (3.5-5.1) meq/L Chloride 95 L (98-107) meq/L Carbon Dioxide 23.1 (21.0-32.0) meq/L Anion Gap 12 (5-15) meq/L BUN 26 H (7-18) mg/dL Creatinine 3.70 H (0.50-1.00) mg/dL Estimated GFR 13 L (>89) mL/min Random Glucose 146 H (74-106) mg/dL Calcium 10.8 H (8.5-10.1) mg/dL Magnesium 1.6 (1.5-2.5) mg/dL Total Bilirubin 0.6 (0.2-1.0) mg/dL AST 21 (15-37) U/L ALT 24 (10-53) U/L Alkaline Phosphatase 48 (45-117) U/L Total Protein 7.8 (6.4-8.2) g/dL Albumin 4.1 (3.4-5.0) g/dL Imaging Data Radiologist's impression: Chest X-Ray 01/10/18 19:00 CONCLUSION: No acute cardiopulmonary disease. ECG Data Attestation: I personally reviewed and interpreted this ECG as follows: Interpretation: Rate: 112 BPM Rhythm: Sinus [place]: Left Intervals: Normal intervals, no blocks, QTc 375 ms Q waves: III, aVF T waves: Inverted in aVL, V5, V6 ST segments: No elevations or depressions Impression: Non-specific EKG, no changes as compared to EKG from 12/30/2017. Discharge Plan Discharge Disposition Patient Disposition: 02 Transfer To [facility] [place] Discharge Condition Condition: Critical Discharge Details Diagnosis: Angioedema, JAYME (acute kidney injury), Acute dehydration Physicians Team ED Provider: Evangelina Jones Primary Care Provider: Primary Care Physici,Katie Rxs /Orders / Referrals /Forms Prescriptions: No Action potassium chloride [Klor-Con 10] 10 mEq Tablet Extended Release 10 meq PO DAILY RF: 0 magnesium oxide 400 mg Tablet 400 mg PO DAILY Qty: 5 RF: 0 vancomycin 500 mg Recon Soln 500 mg PO QID 10 Days Qty: 40 RF: 0 calcium carbonate 200 mg calcium (500 mg) Tablet,Chewable 400 mg PO BID Qty: 10 RF: 0 potassium chloride 10 mEq Capsule, Extended Release 20 meq PO BID Qty: 20 RF: 0 lisinopril 10 mg Tablet 10 mg PO DAILY RF: 0 spironolactone 25 mg Tablet 25 mg PO DAILY RF: 0 Discharge Interventions Interventions: Vital Signs Last Done: 01/10/18 19:33 Status ED Status: With Doctor
[2018-01-10 19:29] LABS: Total Protein 7.8 g/dL (6.4-8.2)
[2018-01-10 19:30] LABS: Alkaline Phosphatase 48 U/L (45-117)
[2018-01-10] MEDS ORDERED: Sod Chloride 0.9% Inj 1,000 ML IV.SIG ONE (19:35)
[2018-01-10] MEDS ORDERED: LORazepam 1 MG Tablet PO PRN (19:58)
[2018-01-10] MEDS: Mag Sulf 1 gm/100 ml Premix 100 ML IV.SIG SCH ×2 (19:58→22:16)
--- NOTE | 2018-01-10 22:13 | P.HPCC ---
History of Present Illness Primary Care Physician: No Primary Care Physician History of Present Illness: 57-year-old female presents with facial swelling. The patient around 1 PM today began to notice swelling of her upper lip; her daughters state that over the past 1-2 hours prior to arrival to the emergency department the swelling has gotten significantly worse. The patient admits to feeling "tightness in my chest " but denies difficulty speaking or swallowing, cough, or wheezing. She has taken lisinopril for the past several years. No history of facial trauma or angioedema/ anaphylaxis in the past. She has been admitted here 12/30-01/03 for C diff colitis, hypokalemia, and hyponatremia; discharged home on oral potassium supplementation and PO vancomycin. Inpatient Certification: I certify that the inpatient services were ordered in accordance with Medicare regulations governing the order. This includes certification that hospital inpatient services are reasonable and necessary and in the case of services not specified as inpatient-only under 42 CFR 419.22(n), that they are appropriately provided as inpatient services in accordance to with the 2-midnight benchmark under 43 CFR 412.3(e) Review of Systems All other systems reviewed negative except as stated in HPI PMFSH - History History Provided By: Patient - Medical History Medical History: Medical History (Last Reviewed 01/10/18 @ 19:30 by Evangelina Jones DO) History of Clostridium difficile infection Hypokalemia Depression Diabetes HTN (hypertension) Hyperlipidemia - Surgical History Surgical History: Surgical History (Last Reviewed 01/10/18 @ 19:30 by Evangelina Jones DO) No history of previous surgery - Family History Family History: Family History (Last Reviewed 01/10/18 @ 19:30 by Evangelina Jones DO) Other Ovarian cancer Pancreatic cancer - Tobacco History Second Hand Smoke Exposure: No Tobacco Use In Past 30 Days: Yes Smoking Status: Current every day smoker Tobacco Type: Cigarettes - Alcohol History How Often Do You Have a Drink Containing Alcohol: Monthly or less - Substance Use History Substance History: No History of Abuse - Travel History Recent Travel in the [place] Within the Last 8 Weeks: No Recent Travel Out of the Country Within the Last 8 Weeks: No - Immunization History Tetanus Immunization: <5 Years Hx Influenza Vaccine This Season: Yes Medications and Allergies Active Medications: Active Medications Sodium Chloride (Ns Inj) 1,000 mls @ 125 mls/hr IV.CONT .Q8H [facility]IKA Lorazepam (Ativan Inj) 1 mg IV.PUSH Q4H PRN PRN Reason: for CIWA 8-10 Lorazepam (Ativan Inj) 2 mg IV.PUSH Q15M PRN PRN Reason: for CIWA > 20 Lorazepam (Ativan Inj) 2 mg IV.PUSH Q1H PRN PRN Reason: for CIWA 15-20 Lorazepam (Ativan) 1 mg PO Q4H PRN PRN Reason: for CIWA 8-10 Last Admin: 01/10/18 21:15 Dose: 1 mg Lorazepam (Ativan) 2 mg PO Q2H PRN PRN Reason: for CIWA 11-14 Lorazepam (Ativan Inj) 2 mg IV.PUSH Q2H PRN PRN Reason: for CIWA 11-14 Current Medications Acetaminophen (Tylenol) 650 mg PO Q6H PRN PRN Reason: PAIN 1-10 AND/OR FEVER >101F Al Hydroxide/Mg Hydroxide (Milk Of Magnesia Liq) 30 ml PO Q12H PRN PRN Reason: Mild Constipation Albuterol (Duoneb Neb (Prn)) 1 ampul NEB Q2HR NEB PRN PRN Reason: WHEEZING Bisacodyl (Dulcolax Supp) 10 mg RECTAL DAILY PRN PRN Reason: SEVERE CONSITIPATION Calcium Carbonate (Tums Chew) 500 mg PO BID [facility] Chlorhexidine Gluconate (Chlorhexidine 2% Cloth) 3 pack TOPICAL DAILY@0400 [facility] Stop: 01/16/18 03:59 Chlorhexidine Gluconate (Chlorhexidine 2% Cloth) 3 pack TOPICAL DAILY@0400 PRN PRN Reason: Extra cloth needed Stop: 01/16/18 03:59 Dexamethasone Sodium Phosphate (Decadron Inj) 4 mg IV.PUSH Q6HR [facility] Stop: 01/13/18 18:01 Last Admin: 01/11/18 00:24 Dose: 4 mg Diphenhydramine HCl (Benadryl Inj) 25 mg IV.PUSH Q4H [facility] Stop: 01/11/18 19:46 Last Admin: 01/11/18 00:24 Dose: 25 mg Enoxaparin Sodium (Lovenox Inj) 30 mg SQ Q24H [facility] Last Admin: 01/11/18 00:24 Dose: 30 mg Famotidine (Pepcid Pf Inj) 20 mg IV.PUSH Q12HR [facility] Sodium Chloride (Ns Inj) 1,000 mls @ 125 mls/hr IV.CONT .Q8H [facility] Last Admin: 01/10/18 22:17 Dose: 125 mls/hr Lactulose (Lactulose Liq) 30 ml PO DAILY PRN PRN Reason: SEVERE CONSITIPATION Lorazepam (Ativan Inj) 1 mg IV.PUSH Q4H PRN PRN Reason: for CIWA 8-10 Last Admin: 01/11/18 01:11 Dose: 1 mg Lorazepam (Ativan Inj) 2 mg IV.PUSH Q15M PRN PRN Reason: for CIWA > 20 Lorazepam (Ativan Inj) 2 mg IV.PUSH Q1H PRN PRN Reason: for CIWA 15-20 Lorazepam (Ativan) 1 mg PO Q4H PRN PRN Reason: for CIWA 8-10 Last Admin: 01/10/18 21:15 Dose: 1 mg Lorazepam (Ativan) 2 mg PO Q2H PRN PRN Reason: for CIWA 11-14 Lorazepam (Ativan Inj) 2 mg IV.PUSH Q2H PRN PRN Reason: for CIWA 11-14 Morphine Sulfate (Morphine Inj) 2 mg IV.PUSH Q2H PRN PRN Reason: PAIN SCALE 6 TO 10 Senna/Docusate Sodium (Maria Isabel-Colace) 1 tab PO BID [facility] Sennosides (Senokot) 17.2 mg PO Q12H PRN PRN Reason: Moderate Constipation Sodium Chloride (Ns Flush) 2 ml IV.FLUSH BID [facility] Sodium Chloride (Ns Flush) 2 ml IV.FLUSH PRN PRN PRN Reason: FLUSH AFTER USING IV ACCESS Spironolactone (Aldactone) 25 mg PO DAILY [facility] Vancomycin HCl (Vancomycin Po) 500 mg PO QID [facility] Allergies Allergy/AdvReac Type Severity Reaction Status Date / Time cephalexin Allergy Unknown VOMITS Verified 01/10/18 19:30 Home Medications Medication Instructions Recorded Confirmed Type potassium chloride [Klor-Con 10] 10 meq PO DAILY 12/30/17 01/10/18 History lisinopril 10 mg PO DAILY 01/10/18 01/10/18 History spironolactone 25 mg PO DAILY 01/10/18 01/10/18 History Results - Labs CBC & Chem 7: 01/10/18 18:00 01/10/18 18:00 Labs: Short CBC 01/10/18 Range/Units 18:00 WBC 9.1 (4.0-11.0) th/mm3 Hgb 13.4 (11.6-15.3) gm/dL Hct 39.5 (35.0-46.0) % Plt Count 436 D (150-450) th/mm3 BMP 01/10/18 18:00 Sodium 130 L Potassium 4.8 Chloride 95 L Carbon Dioxide 23.1 BUN 26 H Creatinine 3.70 H Calcium 10.8 H Liver Function 01/10/18 Range/Units 18:00 Total Bilirubin 0.6 (0.2-1.0) mg/dL AST 21 (15-37) U/L ALT 24 (10-53) U/L Alkaline Phosphatase 48 (45-117) U/L Albumin 4.1 (3.4-5.0) g/dL - Imaging Impressions Chest X-Ray 01/10/18 19:00 CONCLUSION: No acute cardiopulmonary disease. Exam Vital signs: Vital Signs 01/10/18 19:00 01/10/18 19:33 01/10/18 20:30 Temperature 97.5 F L Pulse Rate 104 H 95 H Respiratory Rate 18 20 Blood Pressure 101/71 106/81 103/73 Pulse Oximetry 97 - Constitutional no acute distress - Routine HEENT Exam Head: Present: normocephalic, atraumatic, facial swelling Eye: Present: PERRL. Absent: scleral injection ENT: Present: mucous membranes moist - Routine Neck Exam Present: supple, full ROM. Absent: JVD, carotid bruit - Routine Respiratory Exam Absent: accessory muscle use, rhonchi, stridor, wheezes - Routine Cardiovascular Exam Present: RRR, S1, S2 - Routine Abdominal Exam Present: soft, normoactive bowel sounds. Absent: tenderness, distended - Routine Extremities Exam Present: normal capillary refill. Absent: cyanosis, clubbing, edema - Routine Skin Exam Present: intact. Absent: cyanosis, erythema - Routine Neurological Exam Present: alert, oriented X3, moving all extremities Caprini VTE Risk Assessment Caprini VTE Risk Assessment: Moderate/High Risk (score >= 2) Caprini Risk Assessment Model: Point Value = 1 Point Value = 2 Point Value = 3 Point Value = 5 Age 41-60 Minor surgery BMI > 25 kg/m2 Swollen legs Varicose veins or History of unexplained or recurrent spontaneous Oral contraceptives or hormone replacement Sepsis (< 1 month) Serious lung disease, including pneumonia (< 1 month) Abnormal pulmonary function Acute myocardial infarction Congestive heart failure (< 1 month) History of inflammatory bowel disease Medical patient at bed rest Age 61-74 Arthroscopic surgery Major open surgery (> 45 min) Laparoscopic surgery (> 45 min) Malignancy Confined to bed (> 72 hours) Immobilizing plaster cast Central venous access Age >= 75 History of VTE Family history of VTE Factor V Leiden Prothrombin [id number] Lupus anticoagulant Anticardiolipin antibodies Elevated serum homocysteine Heparin-induced thrombocytopenia Other congenital or acquired thrombophilia Stroke (< 1 month) Elective arthroplasty Hip, pelvis, or leg fracture Acute spinal cord injury (< 1 month) Prophylaxis Regimen: Total Risk Factor Score Risk Level Prophylaxis Regimen 0-1 Low Early ambulation 2 Moderate Order ONE of the following: *Sequential Compression Device (SCD) *Heparin 5000 units SQ BID 3-4 Higher Order ONE of the following medications: *Heparin 5000 units SQ TID *Enoxaparin/Lovenox 40 mg SQ daily (WT < 150 kg, CrCl > 30 mL/min) *Enoxaparin/Lovenox 30 mg SQ daily (WT < 150 kg, CrCl > 10-29 mL/min) *Enoxaparin/Lovenox 30 mg SQ BID (WT < 150 kg, CrCl > 30 mL/min) AND/OR *Sequential Compression Device (SCD) 5 or more Highest Order ONE of the following medications: *Heparin 5000 units SQ TID (Preferred with Epidurals) *Enoxaparin/Lovenox 40 mg SQ daily (WT < 150 kg, CrCl > 30 mL/min) *Enoxaparin/Lovenox 30 mg SQ daily (WT < 150 kg, CrCl > 10-29 mL/min) *Enoxaparin/Lovenox 30 mg SQ BID (WT < 150 kg, CrCl > 30 mL/min) AND *Sequential Compression Device (SCD) Assessment and Plan - Assessment and Plan Plan: Angioedema -DC lisinopril -IV steroids -Benadryl -Pepcid -ICU monitoring for an airway History of Clostridium difficile infection -P.o. vancomycin Hypokalemia -As needed replacement Diabetes -Insulin sliding scale HTN -Spironolactone Hyperlipidemia -Resume home meds when indicated DVT GI prophylaxis -Teds SCDs -Subcu Lovenox -Pepcid 35 minutes of critical care
[2018-01-10] MEDS: Sod Chloride 0.9% Inj 1,000 ML IV.CONT SCH (22:17)
[2018-01-10] MEDS ORDERED: Morphine Inj 4 MG/ML Vial IV.PUSH PRN (23:12)
[2018-01-10] MEDS ORDERED: Acetaminophen 325 MG Tablet PO PRN (23:12)
[2018-01-10] MEDS ORDERED: Bisacodyl 10 MG Supp RECTAL PRN (23:12)
[2018-01-11] MEDS: Enoxaparin Inj 30 MG/0.3 ML Syringe SQ SCH ×2 (00:24→22:31)
[2018-01-11] MEDS ORDERED: Dextrose 50% in Water 50 ML Vial IV.PUSH PRN (04:00)
[2018-01-11] MEDS ORDERED: Chlorhexidine Gluconate 2% 1 Pack (2 Cloths) TOPICAL PRN (04:00)
[2018-01-11] MEDS: Sod Chloride 0.9% Inj 1,000 ML IV.CONT SCH ×4 (04:14→19:58)
[2018-01-11] MEDS: Chlorhexidine Gluconate 2% 1 Pack (2 Cloths) TOPICAL SCH (04:32)
[2018-01-11] MEDS: Insulin NovoLOG Aspart Correctional Sugar Inj SQ SCH ×3 (06:06→18:43)
[2018-01-11 06:54] LABS: Baso % (Auto) 0.1 % (0.0-2.0); Hematocrit 36.4 % (35.0-46.0); Lymph # (Auto) 0.5 th/mm3 (1.0-4.8); Lymph % (Auto) 10.6 % (9.0-44.0); Mean Corpuscular HGB Conc 32.9 % (32.0-36.0); Mean Corpuscular Hemoglobin 36.5 pg (27.0-34.0); Mean Corpuscular Volume 110.9 fL (80.0-100.0); Mean Platelet Volume 7.8 fL (7.0-11.0); Mono # (Auto) 0.1 th/mm3 (0.0-0.9); Mono % (Auto) 1.6 % (0.0-8.0); Neut # (Auto) 3.8 th/mm3 (1.8-7.7); Neut % (Auto) 87.7 % (16.0-70.0); Platelet Count 296 th/mm3 (150-450); Red Blood Count 3.28 mil/mm3 (4.00-5.30); White Blood Count 4.4 th/mm3 (4.0-11.0)
[2018-01-11 07:02] LABS: Activated Partial Thrombo Time 25.4 sec (24.3-30.1); Prothrombin Time 10.4 sec (9.8-11.6)
[2018-01-11 07:15] LABS: Alanine Aminotransferase 22 U/L (10-53); Albumin 3.6 g/dL (3.4-5.0); Anion Gap 10 meq/L (5-15); Aspartate Aminotransferase 22 U/L (15-37); Blood Urea Nitrogen 26 mg/dL (7-18); Calcium 9.4 mg/dL (8.5-10.1); Carbon Dioxide 23.2 meq/L (21.0-32.0); Chloride 100 meq/L (98-107); Glomerular Filtration Rate 16 mL/min (>89); Glucose,Random 167 mg/dL (74-106); Magnesium 2.1 mg/dL (1.5-2.5); Potassium 5.9 meq/L (3.5-5.1); Sodium 133 meq/L (136-145)
[2018-01-11 07:18] LABS: Alkaline Phosphatase 48 U/L (45-117); Phosphorus 4.8 mg/dL (2.5-4.9)
--- NOTE | 2018-01-11 08:55 | P.PNCC ---
Subjective Subjective Remarks/Hospital Course: Hospital Course: 57-year-old female presents with facial swelling. The patient around 1 PM today began to notice swelling of her upper lip; her daughters state that over the past 1-2 hours prior to arrival to the emergency department the swelling has gotten significantly worse. The patient admits to feeling "tightness in my chest " but denies difficulty speaking or swallowing, cough, or wheezing. She has taken lisinopril for the past several years. No history of facial trauma or angioedema/ anaphylaxis in the past. She has been admitted here 12/30-01/03 for C diff colitis, hypokalemia, and hyponatremia; discharged home on oral potassium supplementation and PO vancomycin. subjective: 01/11: on room air. edema has improved. resting comfortably. Objective Vital Signs / I&O: Vital Signs 01/10/18 19:00 01/10/18 19:33 01/10/18 20:00 Temperature 36.4 C L Pulse Rate 104 H 82 Respiratory Rate 18 18 Blood Pressure 101/71 106/81 101/72 Pulse Oximetry 97 94 L 01/10/18 20:30 01/10/18 21:00 01/10/18 22:00 Temperature Pulse Rate 95 H 88 82 Respiratory Rate 20 18 20 Blood Pressure 103/73 128/77 131/85 Pulse Oximetry 01/10/18 23:00 01/10/18 23:33 01/11/18 00:00 Temperature 36.7 C 36.7 C 36.7 C Pulse Rate 82 81 79 Respiratory Rate 20 24 22 Blood Pressure 135/80 138/81 155/87 H Pulse Oximetry 100 94 L 01/11/18 00:53 01/11/18 00:54 01/11/18 01:00 Temperature Pulse Rate 79 78 Respiratory Rate 25 H 29 H Blood Pressure 172/87 H 155/87 H Pulse Oximetry 95 95 01/11/18 02:00 01/11/18 02:05 01/11/18 03:00 Temperature Pulse Rate 79 78 76 Respiratory Rate 19 19 18 Blood Pressure 134/83 120/78 120/78 Pulse Oximetry 91 L 92 L 97 01/11/18 04:00 01/11/18 04:02 01/11/18 05:00 Temperature Pulse Rate 79 82 88 Respiratory Rate 22 35 H 33 H Blood Pressure 153/115 H 158/97 H 231/102 H Pulse Oximetry 96 96 95 01/11/18 05:04 01/11/18 06:00 01/11/18 06:07 Temperature 36.7 C Pulse Rate 87 88 82 Respiratory Rate 25 H 38 H 22 Blood Pressure 180/83 H 179/115 H 164/99 H Pulse Oximetry 97 95 91 L 01/11/18 07:01 Temperature Pulse Rate 83 Respiratory Rate 20 Blood Pressure 152/97 H Pulse Oximetry 95 Intake & Output 01/10/18 01/11/18 01/11/18 18:59 06:59 18:59 Intake Total 450 / 450 Output Total 650 / 650 Balance -200 / -200 Weight 63.6 kg Intake: IV 450 / 450 NS Inj 1,000 ML @ 125 mls/hr IV 250 / 250 .CONT .Q8H [facility] Rx#:[id number] Magnesium Sulfate 1 gm/D5W 100 200 / 200 ml Premix 100 ML @ 100 mls/hr IV.SIG Q1H [facility] Rx#:[id number] Output: Urine 650 / 650 Other: # Voids 2 # Incontinent Voids 2 Weight On Admission 63.9 kg Result Diagrams: 01/11/18 06:26 01/11/18 06:26 Objective Remarks: gen: middle-aged female, lying in bed, no acute distress heent: oral edema appears to have resolved. mucous membranes moist. neck: no jvd. trachea midline. chest: equal chest rise. room air. unlabored. cv: normal rate, regular rhythm. sinus. abd: soft, nontender, nondistended, no guarding. extr: no edema. distal pulses 2+ neuro: RASS 0. follows commands. no focal deficits. Assessment and Plan - Assessment and Plan Plan: Assessment: 57yF with c. diff who re-presents with facial swelling and concern for angioedema. this edema has apparently resolved and there are no more airway concerns. stable to transfer out of ICU. still has multiple medical issues including worsening acute kidney injury and c. diff colitis. Angioedema -DC lisinopril -IV steroids -Benadryl -Pepcid -improved. on room air. no stridor. no edema. transfer out of ICU. History of Clostridium difficile infection -P.o. vancomycin Acute kidney injury - ivf - trend on daily bmp - strict i/o's Hypokalemia -As needed replacement Diabetes -Insulin sliding scale HTN -Spironolactone Hyperlipidemia -Resume home meds when indicated DVT GI prophylaxis -Teds SCDs -Subcu Lovenox -Pepcid
[2018-01-11] MEDS ORDERED: Famotidine PF Inj 20 MG/2 ML Vial IV.PUSH SCH (09:00)
[2018-01-11] MEDS ORDERED: Haloperidol Inj 5 MG/ML Ampul IV.PUSH PRN (09:42)
[2018-01-11] MEDS: Senna/Docusate Sodium 8.6/50 MG Tablet PO SCH ×2 (10:00→22:03)
[2018-01-11] MEDS: Spironolactone 25 MG Tablet PO SCH (10:00)
[2018-01-11] MEDS: Famotidine PF Inj 20 MG/2 ML Vial IV.PUSH SCH ×2 (10:01→20:36)
--- NOTE | 2018-01-11 11:35 | ECG ---
Date Performed: 01/10/2018 Time Performed: 19:14:54 PTAGE: 57 years EKG: SINUS TACHYCARDIA POSSIBLE LEFT ATRIAL ENLARGEMENT MARKED LEFT AXIS DEVIATION PATTERN CONSI STENT WITH PULMONARY DISEASE MODERATE T-WAVE ABNORMALITY, CONSIDER LATERAL ISCHEMIA ABNORMAL ECG Sinc e the PREVIOUS TRACING , no significant change noted PREVIOUS TRACIN12/30/2017 18.09 DOCTOR: Belkis Cornelius Interpretating Date/Time 01/11/2018 11:34:33
[2018-01-11] MEDS ORDERED: Sodium Polystyrene Sulfonate/Sorbitol Liq 15 GM/60 ML UDC PO ONE (12:56)
[2018-01-11] MEDS ORDERED: Dexmedetomidine Inj 200 MCG/2 ML Vial IV.PUSH ONE (12:58)
[2018-01-11] MEDS: Dexmedetomidine Inj 200 MCG in Sodium Chlor 0.9% Inj 48 ML IV.CONT PRN ×2 (13:26→19:16)
[2018-01-11] MEDS: Labetalol HCl Inj 100 MG/20 ML Vial IV.PUSH PRN (22:00)
[2018-01-12] MEDS: Insulin NovoLOG Aspart Correctional Sugar Inj SQ SCH ×4 (00:14→19:45)
[2018-01-12] MEDS: Dexmedetomidine Inj 200 MCG in Sodium Chlor 0.9% Inj 48 ML IV.CONT PRN (02:37)
[2018-01-12] MEDS: Labetalol HCl Inj 100 MG/20 ML Vial IV.PUSH PRN (03:21)
[2018-01-12] MEDS: Sod Chloride 0.9% Inj 1,000 ML IV.CONT SCH ×2 (03:22→17:43)
[2018-01-12] MEDS: Chlorhexidine Gluconate 2% 1 Pack (2 Cloths) TOPICAL SCH (05:36)
[2018-01-12 07:13] LABS: Hematocrit 34.2 % (35.0-46.0); Hemoglobin 11.6 gm/dL (11.6-15.3); Mean Corpuscular HGB Conc 33.9 % (32.0-36.0); Mean Platelet Volume 7.8 fL (7.0-11.0); Platelet Count 275 th/mm3 (150-450); Red Blood Count 3.13 mil/mm3 (4.00-5.30); White Blood Count 4.8 th/mm3 (4.0-11.0)
[2018-01-12 08:01] LABS: Alanine Aminotransferase 22 U/L (10-53); Albumin 3.4 g/dL (3.4-5.0); Alkaline Phosphatase 41 U/L (45-117); Anion Gap 9 meq/L (5-15); Aspartate Aminotransferase 18 U/L (15-37); Blood Urea Nitrogen 26 mg/dL (7-18); Calcium 8.4 mg/dL (8.5-10.1); Carbon Dioxide 19.9 meq/L (21.0-32.0); Chloride 106 meq/L (98-107); Glomerular Filtration Rate 31 mL/min (>89); Glucose,Random 194 mg/dL (74-106); Magnesium 1.8 mg/dL (1.5-2.5); Phosphorus 3.9 mg/dL (2.5-4.9); Potassium 4.8 meq/L (3.5-5.1); Sodium 135 meq/L (136-145); Total Protein 6.7 g/dL (6.4-8.2)
[2018-01-12] MEDS: Spironolactone 25 MG Tablet PO SCH (10:08)
[2018-01-12] MEDS: Famotidine PF Inj 20 MG/2 ML Vial IV.PUSH SCH ×2 (10:08→20:49)
[2018-01-12] MEDS: Senna/Docusate Sodium 8.6/50 MG Tablet PO SCH ×2 (10:09→20:50)
--- NOTE | 2018-01-12 14:32 | P.PN ---
Subjective Interval history: telemetry sinus- BP 138/84 stools- less- "still mushy" no abodminal pain, nausea or voming doesn;t like our hospital foold patient by history states having chronic diarrhea for weeks- was recently discharge here for c diff + on Vancomycin Physical Exam Vital signs: Vital Signs 01/11/18 15:00 01/11/18 16:00 01/11/18 16:01 Temperature Pulse Rate 97 H 68 69 Respiratory Rate 30 H 21 20 Blood Pressure 215/128 H 177/106 H Pulse Oximetry 97 93 L 92 L 01/11/18 17:00 01/11/18 18:00 01/11/18 18:01 Temperature Pulse Rate 62 59 L 60 Respiratory Rate 17 15 14 Blood Pressure 157/99 H 178/110 H Pulse Oximetry 96 96 96 01/11/18 19:00 01/11/18 20:00 01/11/18 20:15 Temperature Pulse Rate 74 74 Respiratory Rate 21 21 Blood Pressure 174/115 H 189/103 H Pulse Oximetry 97 96 97 01/11/18 21:00 01/11/18 21:30 01/11/18 22:00 Temperature Pulse Rate 59 L 67 56 L Respiratory Rate 13 15 17 Blood Pressure 171/102 H 190/113 H 176/97 H Pulse Oximetry 94 L 99 97 01/11/18 22:30 01/11/18 23:00 01/12/18 00:00 Temperature Pulse Rate 62 62 60 Respiratory Rate 19 16 28 H Blood Pressure 148/84 H 153/83 H 158/97 H Pulse Oximetry 95 91 L 92 L 01/12/18 01:00 01/12/18 02:00 01/12/18 02:30 Temperature Pulse Rate 59 L 58 L 68 Respiratory Rate 15 15 19 Blood Pressure 147/97 H 163/89 H Pulse Oximetry 91 L 93 L 100 01/12/18 03:00 01/12/18 03:24 01/12/18 03:31 Temperature 98.1 F Pulse Rate 65 53 L 59 L Respiratory Rate 24 15 14 Blood Pressure 166/107 H 194/92 H 161/101 H Pulse Oximetry 97 100 99 01/12/18 04:00 01/12/18 04:30 01/12/18 05:00 Temperature Pulse Rate 57 L 63 57 L Respiratory Rate 24 19 11 L Blood Pressure 168/99 H 181/100 H 156/88 H Pulse Oximetry 98 96 97 01/12/18 05:30 01/12/18 06:00 01/12/18 08:00 Temperature 98.1 F Pulse Rate 47 L 58 L 53 L Respiratory Rate 12 20 Blood Pressure 165/84 H 170/102 H Pulse Oximetry 100 98 99 01/12/18 08:49 01/12/18 09:00 Temperature Pulse Rate 51 L Respiratory Rate Blood Pressure Pulse Oximetry 98 Intake & Output 01/11/18 01/12/18 01/12/18 18:59 06:59 18:59 Intake Total 3000 / 3000 2100 / 2100 Output Total 300 / 300 Balance 3000 / 3000 1800 / 1800 Weight 62.8 kg Intake: IV 3000 / 3000 2100 / 2100 Precedex Inj 200 MCG In NS Inj 100 / 100 48 ML @ 0.2 MCG/KG/HR 3.18 mls/ hr IV.CONT TITRATE PRN Rx#: [id number] NS Inj 1,000 ML @ 125 mls/hr IV 1999 .CONT .Q8H [facility] Rx#:[id number] Output: Urine 300 / 300 Other: # Voids 5 8 Date of Last Bowel Movement 01/11/18 01/11/18 # Bowel Movements 1 Narrative: awake and alert, no acute distress anciteric, tongue not swelling neck suple lungs- no rales regular rhythm abdmen flabby sof,t nontender extremities no edema skin- no rashes, Results - Labs CBC & Chem 7: 01/13/18 06:41 01/13/18 06:41 Laboratory Results - last 24 hr 01/11/18 01/11/18 01/11/18 16:34 18:15 23:33 WBC RBC Hgb Hct MCV MCH MCHC RDW Plt Count MPV Sodium Potassium 4.7 D Chloride Carbon Dioxide Anion Gap BUN Creatinine Estimated GFR POC Glucose 160 H 201 H Random Glucose Calcium Phosphorus Magnesium Total Bilirubin AST ALT Alkaline Phosphatase Total Protein Albumin 01/12/18 01/12/18 01/12/18 05:34 06:34 06:34 WBC 4.8 RBC 3.13 L Hgb 11.6 Hct 34.2 L MCV 109.0 H MCH 37.0 H MCHC 33.9 RDW 18.0 H Plt Count 275 MPV 7.8 Sodium 135 L Potassium 4.8 Chloride 106 Carbon Dioxide 19.9 L Anion Gap 9 BUN 26 H Creatinine 1.69 H Estimated GFR 31 L POC Glucose 217 H Random Glucose 194 H Calcium 8.4 L D Phosphorus 3.9 Magnesium 1.8 Total Bilirubin 0.4 AST 18 ALT 22 Alkaline Phosphatase 41 L Total Protein 6.7 Albumin 3.4 01/12/18 12:51 WBC RBC Hgb Hct MCV MCH MCHC RDW Plt Count MPV Sodium Potassium Chloride Carbon Dioxide Anion Gap BUN Creatinine Estimated GFR POC Glucose 161 H Random Glucose Calcium Phosphorus Magnesium Total Bilirubin AST ALT Alkaline Phosphatase Total Protein Albumin Assessment and Plan - Plan 57yF with c. diff who re-presents with facial swelling and concern for angioedema. this edema has apparently resolved and there are no more airway concerns. stable to transfer out of ICU. still has multiple medical issues including worsening acute kidney injury and c. diff colitis. Angioedema -DC lisinopril -IV steroids x 6 doses - stop date in chart -Benadryl -Pepcid- -improved. on room air. no stridor. no edema. -transfer out of ICU. Acute kidney injury likely secondary to chronic diarrhea- from c diff - ivf- trending down - cotninue IVF- lower rate - trend on daily bmp - strict i/o's History of Clostridium difficile infection -continue P.o. vancomycin course till 01/14 - montior BM- History of hypertension - on diuretics spironolactone- will DC this - with JAYME - curently on clondiine tid - add CCB if needed for BP control Hypokalemia- improved -As needed replacement Diabetes-Mellitus - as OP was on metformin- will not restart with JAYME - get hemoglobin a1C -Insulin sliding scale Hyperlipidemia -Resume home meds DVT GI prophylaxis -Teds SCDs -Subcu Lovenox -Pepcid Up and ambualte
[2018-01-12] MEDS: Enoxaparin Inj 30 MG/0.3 ML Syringe SQ SCH (23:12)
[2018-01-13] MEDS: Insulin NovoLOG Aspart Correctional Sugar Inj SQ SCH ×4 (00:44→18:33)
[2018-01-13] MEDS: Sod Chloride 0.9% Inj 1,000 ML IV.CONT SCH ×3 (01:09→14:25)
[2018-01-13] MEDS: Chlorhexidine Gluconate 2% 1 Pack (2 Cloths) TOPICAL SCH (04:00)
[2018-01-13 07:40] LABS: Hematocrit 30.8 % (35.0-46.0); Hemoglobin 10.7 gm/dL (11.6-15.3); Mean Corpuscular HGB Conc 34.6 % (32.0-36.0); Mean Corpuscular Hemoglobin 37.7 pg (27.0-34.0); Mean Corpuscular Volume 108.9 fL (80.0-100.0); Mean Platelet Volume 8.4 fL (7.0-11.0); Platelet Count 267 th/mm3 (150-450); Red Blood Count 2.83 mil/mm3 (4.00-5.30); Red Cell Distribution Width 17.5 % (11.6-17.2); White Blood Count 4.8 th/mm3 (4.0-11.0)
[2018-01-13 07:53] LABS: Albumin 2.9 g/dL (3.4-5.0); Anion Gap 8 meq/L (5-15); Aspartate Aminotransferase 17 U/L (15-37); Blood Urea Nitrogen 23 mg/dL (7-18); Carbon Dioxide 20.5 meq/L (21.0-32.0); Chloride 108 meq/L (98-107); Glomerular Filtration Rate 44 mL/min (>89); Glucose,Random 180 mg/dL (74-106); Magnesium 1.7 mg/dL (1.5-2.5); Potassium 4.6 meq/L (3.5-5.1); Sodium 136 meq/L (136-145)
[2018-01-13 08:33] LABS: Alanine Aminotransferase 22 U/L (10-53); Alkaline Phosphatase 38 U/L (45-117); Phosphorus 2.3 mg/dL (2.5-4.9)
--- NOTE | 2018-01-13 08:35 | P.PNIM ---
Subjective Interval history: f/u; angioedema/ c-diff/ JAYME in no acute distress. no diarrhea since yesterday. no fever or abdominal pain. facial swelling has much improved. d/w the RN and no acute issues over night. Physical Exam Vital signs: Vital Signs 01/12/18 08:49 01/12/18 09:00 01/12/18 19:00 Temperature 98.2 F Pulse Rate 51 L 90 Respiratory Rate 36 H Blood Pressure 113/71 Pulse Oximetry 98 96 01/12/18 19:30 01/12/18 19:40 01/12/18 20:00 Temperature Pulse Rate 57 L 55 L Respiratory Rate 17 15 Blood Pressure 106/63 121/73 Pulse Oximetry 97 97 95 01/12/18 20:34 01/12/18 21:00 01/12/18 21:31 Temperature Pulse Rate 52 L 61 54 L Respiratory Rate 17 23 13 Blood Pressure 148/73 H 141/67 H 154/73 H Pulse Oximetry 97 94 L 91 L 01/12/18 22:00 01/12/18 22:30 01/12/18 23:00 Temperature Pulse Rate 53 L 50 L 53 L Respiratory Rate 14 15 16 Blood Pressure 114/68 165/86 H 168/88 H Pulse Oximetry 93 L 94 L 93 L 01/12/18 23:30 01/13/18 00:00 01/13/18 00:30 Temperature 98.2 F Pulse Rate 50 L 51 L 52 L Respiratory Rate 14 15 15 Blood Pressure 144/82 H 160/83 H 157/87 H Pulse Oximetry 94 L 95 94 L 01/13/18 01:00 01/13/18 02:00 01/13/18 02:25 Temperature 98.2 F Pulse Rate 52 L 55 L 54 L Respiratory Rate 13 20 18 Blood Pressure 157/82 H 136/81 Pulse Oximetry 94 L 92 L 96 01/13/18 03:00 01/13/18 04:00 01/13/18 05:00 Temperature 98.5 F Pulse Rate 48 L 49 L 53 L Respiratory Rate 13 14 14 Blood Pressure 132/86 112/64 Pulse Oximetry 96 94 L 93 L 01/13/18 06:00 01/13/18 08:05 Temperature Pulse Rate 49 L Respiratory Rate 13 Blood Pressure Pulse Oximetry 93 L 92 L Intake & Output 01/12/18 01/13/18 01/13/18 18:59 06:59 18:59 Intake Total 0 / 0 2250 / 2250 Output Total 750 / 750 Balance 0 / 0 1500 / 1500 Weight 61.9 kg Intake: IV 0 / 0 1999 Precedex Inj 200 MCG In NS Inj 0 / 0 0 / 0 48 ML @ 0.2 MCG/KG/HR 3.18 mls/ hr IV.CONT TITRATE PRN Rx#: [id number] NS Inj 1,000 ML @ 100 mls/hr IV 1999 .CONT .Q10H [facility] Rx#:[id number] Oral 250 / 250 Output: Urine 750 / 750 Other: Date of Last Bowel Movement 01/12/18 - Constitutional no acute distress - Routine Respiratory Exam Present: CTA bilaterally - Routine Cardiovascular Exam Present: RRR - Routine Abdominal Exam Present: soft - Routine Extremities Exam Comments: no pedal edema. - Routine Neurological Exam Present: alert, oriented X3 Results - Labs CBC & Chem 7: 01/13/18 06:41 01/13/18 06:41 Laboratory Results - last 24 hr 01/12/18 01/12/18 01/13/18 12:51 18:09 00:38 WBC RBC Hgb Hct MCV MCH MCHC RDW Plt Count MPV Sodium Potassium Chloride Carbon Dioxide Anion Gap BUN Creatinine Estimated GFR POC Glucose 161 H 135 H 197 H Random Glucose Calcium Magnesium AST Albumin 01/13/18 01/13/18 01/13/18 05:31 06:41 06:41 WBC 4.8 RBC 2.83 L Hgb 10.7 L Hct 30.8 L MCV 108.9 H MCH 37.7 H MCHC 34.6 RDW 17.5 H Plt Count 267 MPV 8.4 Sodium 136 Potassium 4.6 Chloride 108 H Carbon Dioxide 20.5 L Anion Gap 8 BUN 23 H Creatinine 1.26 H Estimated GFR 44 L POC Glucose 182 H Random Glucose 180 H Calcium 8.0 L Magnesium 1.7 AST 17 Albumin 2.9 L Assessment and Plan - Plan Angioedema- has much improved. -DC'ed lisinopril -IV steroids x 6 doses - stop date in chart -Benadryl -Pepcid- -improved. on room air. no stridor. no edema. -for transfer out of ICU. Acute kidney injury likely secondary to chronic diarrhea- from c diff - ivf- trending down - cotninue IVF- - trend on daily bmp - strict i/o's History of Clostridium difficile infection- now improving. -continue P.o. vancomycin course till 01/14 - montior BM- History of hypertension - on diuretics spironolactone- DC'ed this - with JAYME - will hold Clonidine and start on Amlodipine Hypokalemia- improved -As needed replacement Diabetes-Mellitus - as OP was on metformin- will not restart with JAYME - hemoglobin a1C pending. -Insulin sliding scale Hyperlipidemia -Resumed home meds DVT GI prophylaxis -Teds SCDs -Subcu Lovenox -Pepcid Discharge Planning: dc home tomorrow if stable.
[2018-01-13] MEDS: amLODIPine 5 MG Tablet PO SCH (09:36)
[2018-01-13] MEDS: Famotidine PF Inj 20 MG/2 ML Vial IV.PUSH SCH ×2 (10:36→20:20)
[2018-01-13] MEDS: Senna/Docusate Sodium 8.6/50 MG Tablet PO SCH ×2 (10:37→20:20)
[2018-01-13 16:46] LABS: Hemoglobin A1c 7.2 % (4.3-6.0)
[2018-01-13] MEDS ORDERED: Enoxaparin Inj 40 MG/0.4 ML Syringe SQ SCH (18:00)
[2018-01-14] MEDS: Insulin NovoLOG Aspart Correctional Sugar Inj SQ SCH ×3 (01:14→11:54)
[2018-01-14] MEDS: Sod Chloride 0.9% Inj 1,000 ML IV.CONT SCH ×2 (02:02→08:34)
[2018-01-14] MEDS: Chlorhexidine Gluconate 2% 1 Pack (2 Cloths) TOPICAL SCH (04:24)
[2018-01-14 05:56] LABS: Alanine Aminotransferase 22 U/L (10-53); Albumin 2.8 g/dL (3.4-5.0); Anion Gap 9 meq/L (5-15); Aspartate Aminotransferase 13 U/L (15-37); Blood Urea Nitrogen 22 mg/dL (7-18); Calcium 7.9 mg/dL (8.5-10.1); Carbon Dioxide 20.9 meq/L (21.0-32.0); Chloride 109 meq/L (98-107); Glomerular Filtration Rate 57 mL/min (>89); Glucose,Random 131 mg/dL (74-106); Magnesium 1.7 mg/dL (1.5-2.5); Potassium 4.1 meq/L (3.5-5.1); Sodium 139 meq/L (136-145)
[2018-01-14 05:58] LABS: Alkaline Phosphatase 37 U/L (45-117); Total Protein 5.8 g/dL (6.4-8.2)
[2018-01-14 07:53] LABS: Hematocrit 31.1 % (35.0-46.0); Hemoglobin 10.5 gm/dL (11.6-15.3); Mean Corpuscular HGB Conc 33.6 % (32.0-36.0); Mean Corpuscular Hemoglobin 36.7 pg (27.0-34.0); Mean Platelet Volume 8.2 fL (7.0-11.0); Platelet Count 248 th/mm3 (150-450); Red Blood Count 2.86 mil/mm3 (4.00-5.30); Red Cell Distribution Width 17.8 % (11.6-17.2); White Blood Count 4.3 th/mm3 (4.0-11.0)
[2018-01-14] MEDS: Senna/Docusate Sodium 8.6/50 MG Tablet PO SCH (08:20)
[2018-01-14] MEDS: amLODIPine 5 MG Tablet PO SCH (08:20)
[2018-01-14] MEDS: Famotidine PF Inj 20 MG/2 ML Vial IV.PUSH SCH (08:20)
--- NOTE | 2018-01-14 08:23 | P.PNIM ---
Subjective Interval history: in no acute distress. no sob, chest pain. swelling of the face continues to improve. BP trend noted. d/w the RN. Physical Exam Vital signs: Vital Signs 01/13/18 09:00 01/13/18 10:00 01/13/18 11:01 Temperature Pulse Rate 50 L 50 L 45 L Respiratory Rate 14 14 13 Blood Pressure 155/89 H 142/68 H 171/94 H Pulse Oximetry 96 01/13/18 12:00 01/13/18 13:01 01/13/18 14:00 Temperature Pulse Rate 43 L 47 L 47 L Respiratory Rate 13 15 13 Blood Pressure 189/87 H 172/91 H 133/84 Pulse Oximetry 99 98 97 01/13/18 15:01 01/13/18 16:00 01/13/18 17:00 Temperature Pulse Rate 51 L 47 L 49 L Respiratory Rate 16 13 16 Blood Pressure 163/74 H 163/84 H 148/80 H Pulse Oximetry 99 99 98 01/13/18 18:00 01/13/18 19:00 01/13/18 19:50 Temperature Pulse Rate 60 47 L Respiratory Rate 20 35 H Blood Pressure 148/89 H 167/87 H Pulse Oximetry 98 98 98 01/13/18 20:00 01/13/18 21:00 01/13/18 21:57 Temperature Pulse Rate 45 L 55 L 57 L Respiratory Rate 13 25 H 19 Blood Pressure 154/83 H 164/82 H Pulse Oximetry 99 97 100 01/13/18 22:00 01/13/18 23:00 01/14/18 00:00 Temperature Pulse Rate 48 L 53 L 46 L Respiratory Rate 17 23 13 Blood Pressure 160/91 H 153/95 H 169/97 H Pulse Oximetry 98 98 96 01/14/18 01:00 01/14/18 02:00 01/14/18 03:01 Temperature 98.4 F Pulse Rate 46 L 45 L 51 L Respiratory Rate Blood Pressure 174/91 H 168/79 H 142/67 H Pulse Oximetry 97 98 95 01/14/18 04:00 01/14/18 05:00 01/14/18 05:36 Temperature 98.6 F 98.1 F Pulse Rate 47 L 53 L 59 L Respiratory Rate 24 13 22 Blood Pressure 158/89 H 194/96 H 157/77 H Pulse Oximetry 97 97 97 01/14/18 06:00 01/14/18 07:00 01/14/18 07:41 Temperature Pulse Rate 50 L 46 L Respiratory Rate 15 11 L Blood Pressure 164/83 H 173/86 H Pulse Oximetry 94 L 98 97 Intake & Output 01/13/18 01/14/18 01/14/18 18:59 06:59 18:59 Intake Total 1000 / 1000 1500 / 1500 Output Total 800 / 800 Balance 1000 / 1000 700 / 700 Weight 61.9 kg Intake: IV 1000 / 1000 1000 / 1000 NS Inj 1,000 ML @ 100 mls/hr IV 1000 / 1000 1000 / 1000 .CONT .Q10H MONIKA Rx#:[id number] Oral 500 / 500 Output: Urine 800 / 800 Other: Date of Last Bowel Movement 01/13/18 01/13/18 - Constitutional no acute distress - Routine Respiratory Exam Present: CTA bilaterally - Routine Cardiovascular Exam Present: RRR - Routine Abdominal Exam Present: soft - Routine Extremities Exam Comments: no pedal edema. - Routine Neurological Exam Present: alert, oriented X3 Results - Labs CBC & Chem 7: 01/14/18 07:37 01/14/18 05:07 Laboratory Results - last 24 hr 01/13/18 01/13/18 01/13/18 06:41 06:41 14:33 WBC RBC Hgb Hct MCV MCH MCHC RDW Plt Count MPV Sodium Potassium Chloride Carbon Dioxide Anion Gap BUN Creatinine Estimated GFR POC Glucose 160 H Random Glucose Hemoglobin A1c 7.2 H Calcium Phosphorus 2.3 L D Magnesium Total Bilirubin 0.3 AST ALT 22 Alkaline Phosphatase 38 L Total Protein 6.0 L D Albumin 01/13/18 01/14/18 01/14/18 18:57 00:07 05:07 WBC RBC Hgb Hct MCV MCH MCHC RDW Plt Count MPV Sodium 139 Potassium 4.1 Chloride 109 H Carbon Dioxide 20.9 L Anion Gap 9 BUN 22 H Creatinine 1.01 H Estimated GFR 57 L POC Glucose 153 H 200 H Random Glucose 131 H Hemoglobin A1c Calcium 7.9 L Phosphorus 2.0 L Magnesium 1.7 Total Bilirubin 0.3 AST 13 L ALT 22 Alkaline Phosphatase 37 L Total Protein 5.8 L Albumin 2.8 L 01/14/18 07:37 WBC 4.3 RBC 2.86 L Hgb 10.5 L Hct 31.1 L MCV 109.0 H MCH 36.7 H MCHC 33.6 RDW 17.8 H Plt Count 248 MPV 8.2 Sodium Potassium Chloride Carbon Dioxide Anion Gap BUN Creatinine Estimated GFR POC Glucose Random Glucose Hemoglobin A1c Calcium Phosphorus Magnesium Total Bilirubin AST ALT Alkaline Phosphatase Total Protein Albumin Assessment and Plan - Plan Angioedema- has much improved. -DC'ed lisinopril -received IV steroids -Benadryl -Pepcid- -improved. on room air. no stridor. no edema. -for transfer out of ICU. Acute kidney injury likely secondary to chronic diarrhea- from c diff - ivf- trending down - cotninue IVF- - trend on daily bmp - strict i/o's History of Clostridium difficile infection- now improving. -continue P.o. vancomycin course ; will finish the course today. History of hypertension - on diuretics spironolactone- DC'ed this - with JAYME - will hold Clonidine and Amlodipine- start on Procardia. Hypokalemia- improved -As needed replacement Bradycardia- likely due to Clonidine clonidine was stopped and HR has improved- asymptomatic. Diabetes-Mellitus - as OP was on metformin- will not restart with JAYME - hemoglobin a1C 7.2. -Insulin sliding scale Hyperlipidemia -Resumed home meds DVT GI prophylaxis -Teds SCDs -Subcu Lovenox -Pepcid Discharge Planning: dc home this afternoon if BP stable. see med list. f/u; pcp. d/w the patient and RN.
[2018-01-14] MEDS: Potassium Phos/Sodium Phos 250 MG Tablet PO SCH ×2 (09:49→13:30)
[2018-01-14 14:28] VITALS: BP 172/101; PULSE 72; RESP 24; TEMP 97.8; O2SAT 99
--- NOTE | 2018-02-02 21:25 | P.DS ---
Date of admission: 01/10/18 19:55 Primary care physician: No Primary Care Physician Brief History from admission: 57-year-old female presents with facial swelling. The patient around 1 PM today began to notice swelling of her upper lip; her daughters state that over the past 1-2 hours prior to arrival to the emergency department the swelling has gotten significantly worse. The patient admits to feeling "tightness in my chest " but denies difficulty speaking or swallowing, cough, or wheezing. She has taken lisinopril for the past several years. No history of facial trauma or angioedema/ anaphylaxis in the past. She has been admitted here 12/30-01/03 for C diff colitis, hypokalemia, and hyponatremia; discharged home on oral potassium supplementation and PO vancomycin. DS: Medications - Discharge Medications Prescriptions: nifedipine [Procardia XL] 30 mg PO DAILY 30 Days #30 tab sod phos di, mono-K phos mono [V-[id number]-Ltubrxj] 1 tab PO QID #4 tab DS: Summary Hospital Course: Angioedema- has much improved. -DC'ed lisinopril -received IV steroids -Benadryl -Pepcid- -improved. on room air. no stridor. no edema. -for transfer out of ICU. Acute kidney injury likely secondary to chronic diarrhea- from c diff - ivf- trending down - cotninue IVF- - trend on daily bmp - strict i/o's History of Clostridium difficile infection- now improving. -continue P.o. vancomycin course ; will finish the course today. History of hypertension - on diuretics spironolactone- DC'ed this - with JAYME - will hold Clonidine and Amlodipine- start on Procardia. Hypokalemia- improved -As needed replacement Bradycardia- likely due to Clonidine clonidine was stopped and HR has improved- asymptomatic. Diabetes-Mellitus - as OP was on metformin- will not restart with JAYME - hemoglobin a1C 7.2. -Insulin sliding scale Hyperlipidemia -Resumed home meds DVT GI prophylaxis -Teds SCDs -Subcu Lovenox -Pepcid - Time Spent with Patient Total time spent providing and/or coordinating discharge services: Less than 30 minutes Exam - Constitutional no acute distress - Routine Respiratory Exam Present: CTA bilaterally - Routine Cardiovascular Exam Present: RRR - Routine Abdominal Exam Present: soft - Routine Extremities Exam Comments: no pedal edema. - Routine Neurological Exam Present: alert, oriented X3 Results Procedures completed during hospitalization: none. - Impressions ITS Impressions Chest X-Ray 01/10/18 19:00 CONCLUSION: No acute cardiopulmonary disease. Discharge Plan - Discharge Disposition Patient Disposition: 01 Discharge Home - Discharge Condition Condition: Fair - Discharge Order Discharge Orders: Discharge Order (Routine); Ordered 01/14/18 Ordered By: Isa Spicer - Physicians Team Primary Care Provider: Primary Care Katie Duarte Attending Provider: Isa Spicer
== END 2018-01-14 15:35 | disposition home or self-care (01) ==
LOC: PHED 18:49 → PHEDA 19:55 → HIMC 23:30
PROVIDERS: ADMIT Internal Medicine; ATTEND Internal Medicine